=== PATIENT | male | born 1975 | race Caucasian/White ===

== ENCOUNTER 2018-08-08 11:16 | Observation (INO) ==
[2018-08-08 12:53] LABS: Albumin Level 3.5 gm/dL (3.4-5.0); Albumin/Globulin Ratio 0.9 (1.1-1.8); Anion Gap 16.6 mEq/L (5-15); Bilirubin,Total 0.8 mg/dL (0.2-1.0); Globulin 4.1 gm/dl (1.3-3.2); Potassium 3.6 mmoL/L (3.5-5.1); Total Protein,Serum 7.6 gm/dL (6.4-8.2)
--- NOTE | 2018-08-08 13:02 | Emergency Department Note ---
ED Disposition Clinical Impression: Cellulitis Disposition: Still a Patient Condition on Discharge: Fair Instructions: DI for Skin Abscess Referrals: Provider,Referral, [Primary Care Provider] - - Critical Care Critical Care Time: No Attestation: On 08/08/18, the high probability of a clinically significant, sudden or life threatening deterioration of the following system(s) required my full and direct attention, intervention and personal management. The time I documented below is in addition to time spent performing reported procedures but includes the following listed in this critical care notation. Medical Decision Making - [place] Inquiry Pt receiving controlled substance: No [place] was queried for this patient: No Vital Signs: 08/08/18 12:16 Temperature 98.0 F Temperature Source Oral Pulse Rate [Left] 101 H Respiratory Rate 17 Blood Pressure [Right Arm] 156/75 H Blood Pressure Mean [Right Arm] 102 Blood Pressure Source [Right Arm] Automatic Cuff Blood Pressure Position [Right Arm] Sitting 02 Sat by Pulse Oximetry 98 Oxygen Delivery Method Room Air - Lab Data Lab Results 08/08/18 11:48: WBC 12.1 H, RBC 4.72, Hgb 15.0, Hct 44.3, MCV 93.9, MCH 31.7 H, MCHC 33.8, RDW 13.7, Plt Count 192, MPV 9.0, Neut % (Auto) 75.4, Lymph % (Auto) 15.8, [place] % (Auto) 5.6, Eos % (Auto) 2.8, Baso % (Auto) 0.3, Neut # (Auto) 9.1 H, Lymph # (Auto) 1.9, [place] # (Auto) 0.7, Eos # (Auto) 0.3, Baso # (Auto) 0.0 08/08/18 11:48: Sodium 137, Potassium 3.6, Chloride 100, Carbon Dioxide 24, Anion Gap 16.6 H, BUN 19 H, Creatinine 1.53 H, Estimated Creat Clear 51, Estimated GFR 50 L, Est GFR ( Amer) 61, Glucose 103, Calcium 9.0, Total Bilirubin 0.8, AST 31, ALT 59, Alkaline Phosphatase 71, Total Protein 7.6, Albumin 3.5, Globulin 4.1 H, Albumin/Globulin Ratio 0.9 L 08/08/18 11:48: Lactate 0.4 Result diagrams: 08/08/18 11:48 08/08/18 11:48 Orders (Tests/Meds): ED MEDICATIONS Generic Name Dose Route Start Last Admin Trade Name Freq PRN Reason Stop Dose Admin Clindamycin Phosphate 900 mg/ 106 mls @ 100 mls/hr 08/08/18 12:29 Sodium Chloride IV 08/08/18 13:32 ONCE ONE Protocol Discontinued Medications Generic Name Dose Route Start Last Admin Trade Name Freq PRN Reason Stop Dose Admin Ketorolac Tromethamine 15 mg 08/08/18 12:59 Toradol 30mg/Ml Vial IV 08/08/18 13:00 ONCE ONE ORDERS Category Date Time Status CT elbow RT w con Stat Cat Scan 08/08/18 12:28 Ordered Drug Screen,Urine Stat Lab 08/08/18 13:13 Ordered Blood Culture Stat Micro 08/08/18 11:48 Received Medical Decision Narrative: 42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 Kaminski who will be admitted for IV antibiotics. Upper Extremity HPI - General Chief Complaint: Skin/Abscess/Foreign Body Stated Complaint: Swollen right arm, possible septic Time Seen by Provider: 08/08/18 13:00 Mode of Arrival: Ambulatory Limitations: No Limitations Description of Symptoms (Recalled from ER Triage Doc. by RN): PT PRESENTS WITH POSSIBLE SEPTIC RIGHT ELBOW. RECEIVED ROCEPHIN AND BACTRIM YESTERDAY BUT SWELLING HAS INCREASED SIGNIFICANTLY. - History of Present Illness HPI narrative: 42 years old white male with no prior past medical history who developed redness and swelling of the right elbow 3 days ago was seen in urgent treatment care was given antibiotics and started yesterday. He only took 2 doses but the pain and the swelling is progressively getting worse and extending to his right hand. The patient developed low-grade temperature and chills. She denies having chest pain palpitations nausea vomiting. He denies IV drug use. complaint: injury to: right Onset (ago): day(s) (3 days.) Other Extremity Injury: Right: elbow Handedness: left Place: work Severity scale (1-10): 8 Relieving factors: rest Exacerbating factors: movement of extremity - Related Data Allergies Allergy/AdvReac Type Severity Reaction Status Date / Time No Known Allergies Allergy Unverified 07/29/17 14:17 [facility] History - Hepatitis A Screen Drug use history?: No High risk sexual behaviors?: No History of sexually transmitted infection?: No Currently employed?: No Childcare worker?: No Do you have indoor plumbing?: Yes Do you have electricity?: Yes Attestation statement:: This patient has been screened for Hepatitis A risk factors. I have reviewed the patient's past medical history: Yes - Social History Educational Level: Completed High School Smoking Status: Unknown if ever smoked Alcohol Intake: never - Psychiatric History Expresses thoughts of harming self/others: None Suicide Plan Description: No Plan ROS Obtained: Yes All systems reviewed & no additional complaints Physical Exam - General General appearance: alert, in no apparent distress - Head Head exam: atraumatic, normocephalic, normal inspection - Eye Eye exam: Present: normal appearance, PERRL, EOMI - ENT ENT exam: Present: normal exam, normal oropharynx, mucous membranes moist, TM's normal bilaterally, normal external ear exam - Neck Neck exam: Present: normal inspection, full ROM, trachea midline. Absent: meni ngismus, lymphadenopathy - Chest Chest inspection: Present: normal inspection, symmetric chest wall rise. Absent: tenderness - Respiratory Respiratory exam: Present: normal lung sounds bilaterally. Absent: respiratory distress - Cardiovascular Cardiovascular exam: Present: regular rate, normal rhythm, normal heart sounds. Absent: JVD - Abdominal Exam Abdominal exam: Present: soft, normal bowel sounds. Absent: distention, tenderness, guarding, rebound, rigidity - Extremities Exam Extremities exam: Present: normal inspection, full ROM, tenderness, normal capillary refill, joint swelling, other (Positive for redness swelling and inflammation of the right upper extremity extending from the right elbow to the dorsum of the right hand.). Absent: calf tenderness - Back Exam Back exam: Present: normal inspection. Absent: tenderness - Neurological Exam Neurological exam: Present: alert, oriented X3, CN II-XII intact, motor sensory deficit, reflexes normal - Psychiatric Psychiatric exam: Present: normal affect, normal mood - Skin Skin exam: Present: warm, dry, intact, normal color - Lymphatic Lymphatic Findings: no adenopathy
[2018-08-08 13:04] LABS: Basophils % 0.3 % (0.1-2.0); Eosinophils # 0.3 K/mm3 (0.0-0.4); Eosinophils % 2.8 % (0.1-12.0); Hematocrit 44.3 % (42.0-52.0); Lymphocytes # 1.9 K/mm3 (0.7-4.5); Lymphocytes % 15.8 % (10-50); Mean Corpuscular HGB Conc 33.8 g/dL (31.8-35.4); Mean Corpuscular Hemoglobin 31.7 pg (27.0-31.2); Mean Corpuscular Volume 93.9 fl (80-94); Monocytes # 0.7 K/mm3 (0.1-1.0); Monocytes % 5.6 % (1.7-9.3); Neutrophils # 9.1 K/mm3 (1.8-7.8); Neutrophils % 75.4 % (37.0-80.0); Platelet Count 192 K/mm3 (142-424); Red Blood Count 4.72 M/mm3 (4.60-6.20); Red Cell Distribution Width 13.7 % (11.5-17.5); White Blood Count 12.1 K/mm3 (4.8-10.8)
--- NOTE | 2018-08-08 14:23 | Pharmacy Consult Notes ---
- Pharmacy Consult Date: 08/08/18 Time: 14:22 Referring provider: DR. PRYOR Reason for Consult:: VANCOMYCIN DOSING Allergies and ADEs:: Allergies Allergy/AdvReac Type Severity Reaction Status Date / Time No Known Allergies Allergy Unverified 07/29/17 14:17 Home Medications:: Home Medications Medication Instructions Recorded Confirmed Type No Known Home Medications 08/08/18 08/08/18 History Height: 1.6 m Weight: 124.738 kg Laboratory Results:: Laboratory Results - last 24 hr 08/08/18 11:48: WBC 12.1 H, RBC 4.72, Hgb 15.0, Hct 44.3, MCV 93.9, MCH 31.7 H, MCHC 33.8, RDW 13.7, Plt Count 192, MPV 9.0, Neut % (Auto) 75.4, Lymph % (Auto) 15.8, [place] % (Auto) 5.6, Eos % (Auto) 2.8, Baso % (Auto) 0.3, Neut # (Auto) 9.1 H, Lymph # (Auto) 1.9, [place] # (Auto) 0.7, Eos # (Auto) 0.3, Baso # (Auto) 0.0 08/08/18 11:48: Sodium 137, Potassium 3.6, Chloride 100, Carbon Dioxide 24, Anion Gap 16.6 H, BUN 19 H, Creatinine 1.53 H, Estimated Creat Clear 51, Estimat ed GFR 50 L, Est GFR ( Amer) 61, Glucose 103, Calcium 9.0, Total Bilirubin 0.8, AST 31, ALT 59, Alkaline Phosphatase 71, Total Protein 7.6, Albumin 3.5, Globulin 4.1 H, Albumin/Globulin Ratio 0.9 L 08/08/18 11:48: Lactate 0.4 Assessment and Plan - Assessment and plan all Dx Assessment and Plan for all problems:: BASED ON PATIENT FACTORS, RECOMMEND INITIATING VANCOMYCIN IV AT 2,250MG EVERY 18 HOURS. PHARMACY WILL MONITOR AND ADJUST DOSE APPROPRIATE. -NYDIA ANDREW, HAMLETD
--- NOTE | 2018-08-08 15:36 | History & Physical Report ---
*Admission Date: 08/08/18 *Chief complaint: cellulitis *History of present illness: Mr. Palomares is a 42-year-old male with no prior past medical history who developed redness and swelling of the right elbow 3 days ago. He went to the urgent treatment care yesterday and was started on Bactrim. Leading edge was marked with lines at that time and he was instructed to return to the clinic or ER if redness got worse. He only took 2 doses but the pain and the swelling is progressively getting worse and extending to his right hand. The patient developed low-grade temperature and chills. He denies having chest pain, palpitations, nausea, or vomiting. He has no primary care physician. Of note he thinks that he has possible history of gout as his father had gout. He reports several months ago having a red swollen knee that resolved spontaneously after about 2 weeks. [facility] History I have reviewed the patient's past medical history: Yes - *Social History Educational Level: Completed High School Smoking Status: Unknown if ever smoked Alcohol Intake: never - Psychiatric History Expresses thoughts of harming self/others: None Suicide Plan Description: No Plan Comment: Gout in his father Review of Systems - Review of Systems Review of systems:: pertinent systems reviewed and negative unless documented below Meds Home Medications Medication Instructions Recorded Confirmed Type No Known Home Medications 08/08/18 08/08/18 History Allergies Allergy/AdvReac Type Severity Reaction Status Date / Time No Known Allergies Allergy Unverified 07/29/17 14:17 Exam Vital signs and Labs for Last 24 Hours: Temp Pulse Resp BP Pulse Ox 97.8 F 99 H 18 127/88 99 08/08/18 15:17 08/08/18 15:17 08/08/18 15:17 08/08/18 15:17 08/08/18 15:17 Laboratory Results - last 24 hr 08/08/18 11:48: WBC 12.1 H, RBC 4.72, Hgb 15.0, Hct 44.3, MCV 93.9, MCH 31.7 H, MCHC 33.8, RDW 13.7, Plt Count 192, MPV 9.0, Neut % (Auto) 75.4, Lymph % (Auto) 15.8, [place] % (Auto) 5.6, Eos % (Auto) 2.8, Baso % (Auto) 0.3, Neut # (Auto) 9.1 H, Lymph # (Auto) 1.9, [place] # (Auto) 0.7, Eos # (Auto) 0.3, Baso # (Auto) 0.0 08/08/18 11:48: Sodium 137, Potassium 3.6, Chloride 100, Carbon Dioxide 24, Anion Gap 16.6 H, BUN 19 H, Creatinine 1.53 H, Estimated Creat Clear 51, Estimated GFR 50 L, Est GFR ( Amer) 61, Glucose 103, Calcium 9.0, Total Bilirubin 0.8, AST 31, ALT 59, Alkaline Phosphatase 71, Total Protein 7.6, Albumin 3.5, Globulin 4.1 H, Albumin/Globulin Ratio 0.9 L 08/08/18 11:48: Lactate 0.4 I & O for Last 24 hours: Intake & Output 08/05/18 08/06/18 08/07/18 08/08/18 23:59 23:59 23:59 23:59 Intake Total 1250 / 1250 Balance 1250 / 1250 Weight 127.091 kg - *Routine HEENT Exam Head: Present: normocephalic, atraumatic Eye: Present: EOMI, PERRL ENT: Present: mucous membranes moist - *Routine Neck Exam Present: supple. Absent: JVD, thyromegaly - *Routine Respiratory Exam Present: CTA bilaterally. Absent: prolonged expiratory phase, rales, wheezes, crackles - *Routine Cardiovascular Exam Present: RRR, Normal S1, Normal S2. Absent: murmur - *Routine Abdominal Exam Present: soft, normoactive bowel sounds. Absent: tenderness - *Routine Rectal Exam Patient deferred: visual exam - *Routine Exam Patient deferred: penile exam - *Routine Extremities Exam Present: edema, tenderness. Absent: cyanosis, clubbing Comments: Right upper remedy with erythema from proximal to elbow distal to dorsum of hand. Swelling of elbow joint and forearm, tender to palpation - *Routine Skin Exam Present: intact, erythema. Absent: cyanosis Comments: Erythema of right arm as prescribed previously - *Routine Neurological Exam Present: alert, oriented X3. Absent: altered mental status Assessment and Plan (1) Cellulitis Current visit: Yes Status: Acute Qualifiers: Site of cellulitis: extremity Site of cellulitis of extremity: upper extremity Laterality: right Qualified Code(s): L03.113 - Cellulitis of right upper limb Category: Medical Code(s): L03.90 - Cellulitis, unspecified Patient has progressing cellulitis of right upper extremity. No clear source or injury to skin. Elbow is tender to palpation. Initiated on Bactrim 24 hours prior to admission to ER. Transition to vancomycin. Continue IV with renal dosing. Blood cultures obtained. -Added uric acid to lab work as questionable history of gout which could conceiv ably explain joint tenderness and redness. Further management pending results - if has improvement in swelling and redness, will transition back to oral regimen to complete outpatient treatment (2) Renal insufficiency Current visit: Yes Status: Acute Category: Medical Code(s): N28.9 - Disorder of kidney and ureter, unspecified Unclear etiology. Patient reportedly has only single kidney. Caution with nephrotoxic medications, renally dose is appropriate. Monitor with labs in the morning
[2018-08-09 07:04] LABS: Basophils % 0.4 % (0.1-2.0); Eosinophils # 0.3 K/mm3 (0.0-0.4); Eosinophils % 3.8 % (0.1-12.0); Hematocrit 39.7 % (42.0-52.0); Hemoglobin 13.5 g/dL (14.1-18.0); Lymphocytes # 1.7 K/mm3 (0.7-4.5); Lymphocytes % 18.3 % (10-50); Mean Corpuscular Volume 94.3 fl (80-94); Mean Platelet Volume 8.3 fl (7.4-10.4); Monocytes # 0.6 K/mm3 (0.1-1.0); Monocytes % 6.3 % (1.7-9.3); Neutrophils # 6.4 K/mm3 (1.8-7.8); Neutrophils % 71.1 % (37.0-80.0); Platelet Count 190 K/mm3 (142-424); Red Blood Count 4.21 M/mm3 (4.60-6.20); Red Cell Distribution Width 13.6 % (11.5-17.5)
[2018-08-09 07:09] LABS: Anion Gap 13.9 mEq/L (5-15); Potassium 3.9 mmoL/L (3.5-5.1)
--- NOTE | 2018-08-09 11:45 | Pharmacy Consult Notes ---
- Pharmacy Consult Date: 08/09/18 Time: 11:44 Referring provider: DR. NIXON Reason for Consult:: VANCOMYCIN TROUGH LEVEL Allergies and ADEs:: Allergies Allergy/AdvReac Type Severity Reaction Status Date / Time No Known Allergies Allergy Unverified 07/29/17 14:17 Home Medications:: Home Medications Medication Instructions Recorded Confirmed Type No Known Home Medications 08/08/18 08/08/18 History Height: 1.85 m Weight: 127.091 kg Laboratory Results:: Laboratory Results - last 24 hr 08/08/18 11:48: WBC 12.1 H, RBC 4.72, Hgb 15.0, Hct 44.3, MCV 93.9, MCH 31.7 H, MCHC 33.8, RDW 13.7, Plt Count 192, MPV 9.0, Neut % (Auto) 75.4, Lymph % (Auto) 15.8, [place] % (Auto) 5.6, Eos % (Auto) 2.8, Baso % (Auto) 0.3, Neut # (Auto) 9.1 H, Lymph # (Auto) 1.9, [place] # (Auto) 0.7, Eos # (Auto) 0.3, Baso # (Auto) 0.0 08/08/18 11:48: Sodium 137, Potassium 3.6, Chloride 100, Carbon Dioxide 24, Anion Gap 16.6 H, BUN 19 H, Creatinine 1.53 H, Estimated Creat Clear 51, Estimated GFR 50 L, Est GFR ( Amer) 61, Glucose 103, Calcium 9.0, Total Bilirubin 0.8, AST 31, ALT 59, Alkaline Phosphatase 71, Total Protein 7.6, Albumin 3.5, Globulin 4.1 H, Albumin/Globulin Ratio 0.9 L 08/08/18 11:48: Lactate 0.4 08/08/18 11:48: Uric Acid 6.7 08/09/18 06:46: WBC 9.0 D, RBC 4.21 L, Hgb 13.5 L, Hct 39.7 L, MCV 94.3 H, MCH 32.0 H, MCHC 34.0, RDW 13.6, Plt Count 190, MPV 8.3, Neut % (Auto) 71.1, Lymph % (Auto) 18.3, [place] % (Auto) 6.3, Eos % (Auto) 3.8, Baso % (Auto) 0.4, Neut # (Auto) 6.4, Lymph # (Auto) 1.7, [place] # (Auto) 0.6, Eos # (Auto) 0.3, Baso # (Auto) 0.0 08/09/18 06:46: Sodium 138, Potassium 3.9, Chloride 105, Carbon Dioxide 23, Anion Gap 13.9, BUN 17, Creatinine 1.46 H, Estimated Creat Clear 118, Estimated GFR 53 L, Est GFR ( Amer) 64, Glucose 100, Calcium 8.0 L D 08/09/18 06:46: Vancomycin Trough 5.6 L Medical History: Denies:: Cancer, Diabetes Mellitus Type 1, Diabetes Mellitus Type 2, MRSA Assessment and Plan (1) Cellulitis Current visit: Yes Status: Acute Qualifiers: Site of cellulitis: extremity Site of cellulitis of extremity: upper extremity Laterality: right Qualified Code(s): L03.113 - Cellulitis of right upper limb Category: Medical Code(s): L03.90 - Cellulitis, unspecified (2) Renal insufficiency Current visit: Yes Status: Acute Category: Medical Code(s): N28.9 - Disorder of kidney and ureter, unspecified - Assessment and plan all Dx Assessment and Plan for all problems:: BASED ON VANCOMYCIN TROUGH LEVEL AND PATIENT FACTORS, RECOMMEND CONTINUING VANCOMYCIN 2250 MG IV Q18H AT THIS TIME. PHARMACY WILL CONTINUE TO MONITOR CLOSELY AND ADJUST APPROPRIATE.
--- NOTE | 2018-08-09 13:48 | Discharge Summary ---
General - General Admission date:: 08/08/18 Discharge date: 08/09/18 HPI HPI: Mr. Palomares is a 42-year-old male with no prior past medical history who developed redness and swelling of the right elbow 3 days ago. He went to the urgent treatment care yesterday and was started on Bactrim. Leading edge was marked with lines at that time and he was instructed to return to the clinic or ER if redness got worse. He only took 2 doses but the pain and the swelling is progressively getting worse and extending to his right hand. The patient developed low-grade temperature and chills. He denies having chest pain, palpitations, nausea, or vomiting. He has no primary care physician. Of note he thinks that he has possible history of gout as his father had gout. He reports several months ago having a red swollen knee that resolved spontaneously after about 2 weeks. Hospital Course Hospital Course: Admitted to [facility] for IV antibiotics. Treated with vancomycin with significant improvement in erythema, swelling, and movement of arm. Was able to regain majority of movement and elbow and hand with decrease in edema and redness. Still noted to have fluid collection in right elbow which was tapped w ith the assistance of ultrasound. Drained 3 cc of fluid from patient's olecranon bursa. Fluid sent for study. Otherwise patient remained afebrile, tolerated regular diet. Plan to resume patient's Bactrim at time of discharge, already has prescription at home to complete. Additionally, patient admits to significant alcohol use and would like to quit. As he has no underlying liver disease, will initiate naltrexone. Plan to have patient follow-up in our clinic later this week to assess response to oral antibiotics. Counseled to return to the ER or clinic if notices worsening redness and swelling after transitioning back to oral antibiotics. For discharge home. Objective Vital signs: Temp Pulse Resp BP Pulse Ox 98.6 F 94 H 18 138/66 98 08/09/18 08:00 08/09/18 08:00 08/09/18 08:00 08/09/18 08:00 08/09/18 08:00 Narrative: - *Routine HEENT Exam Head: Present: normocephalic, atraumatic Eye: Present: EOMI, PERRL ENT: Present: mucous membranes moist - *Routine Neck Exam Present: supple. Absent: JVD, thyromegaly - *Routine Respiratory Exam Present: CTA bilaterally. Absent: prolonged expiratory phase, rales, wheezes, crackles - *Routine Cardiovascular Exam Present: RRR, Normal S1, Normal S2. Absent: murmur - *Routine Abdominal Exam Present: soft, normoactive bowel sounds. Absent: tenderness - *Routine Rectal Exam Patient deferred: visual exam - *Routine Exam Patient deferred: penile exam - *Routine Extremities Exam Present: Interval improvement in edema, range of motion, tenderness. Tenderness now focal to olecranon bursa. Absent: cyanosis, clubbing Comments: Leading edge of erythema has receded from previously drawn lines. - *Routine Skin Exam Present: intact, erythema. Absent: cyanosis Comments: Erythema of right arm as prescribed previously - *Routine Neurological Exam Present: alert, oriented X3. Absent: altered mental status Results Labs on day of discharge: Labs from last 24 hours 08/09/18 08/09/18 08/09/18 06:46 06:46 06:46 WBC 9.0 D RBC 4.21 L Hgb 13.5 L Hct 39.7 L MCV 94.3 H MCH 32.0 H MCHC 34.0 RDW 13.6 Plt Count 190 MPV 8.3 Neut % (Auto) 71.1 Lymph % (Auto) 18.3 [place] % (Auto) 6.3 Eos % (Auto) 3.8 Baso % (Auto) 0.4 Neut # (Auto) 6.4 Lymph # (Auto) 1.7 [place] # (Auto) 0.6 Eos # (Auto) 0.3 Baso # (Auto) 0.0 Sodium 138 Potassium 3.9 Chloride 105 Carbon Dioxide 23 Anion Gap 13.9 BUN 17 Creatinine 1.46 H Estimated Creat Clear 118 Estimated GFR 53 L Est GFR ( Amer) 64 Glucose 100 Uric Acid Calcium 8.0 L D Vancomycin Trough 5.6 L 08/08/18 11:48 WBC RBC Hgb Hct MCV MCH MCHC RDW Plt Count MPV Neut % (Auto) Lymph % (Auto) [place] % (Auto) Eos % (Auto) Baso % (Auto) Neut # (Auto) Lymph # (Auto) [place] # (Auto) Eos # (Auto) Baso # (Auto) Sodium Potassium Chloride Carbon Dioxide Anion Gap BUN Creatinine Estimated Creat Clear Estimated GFR Est GFR ( Amer) Glucose Uric Acid 6.7 Calcium Vancomycin Trough DS: Diagnosis - Discharge Diagnosis (1) Cellulitis Status: Acute (2) Renal insufficiency Status: Acute (3) Alcohol dependence Status: Chronic Discharge Plan - Patient Discharge Instructions ACTIVITY: Continue current activity DIET: continue same diet Patient Instructions: DI for Cellulitis -- Adult, Kidney Failure - Follow up Plan Follow up with: Trevor Cortes MD [Staff Physician] - (Friday, last appt of day) Disposition: Home, Self-Jail Medications: Home Medications Medication Instructions Recorded Confirmed Type Naltrexone HCl 50 mg PO DAILY 30 Days #30 tablet 08/09/18 Rx Prescriptions/Medication Reconciliation: No Action No Known Home Medications
--- NOTE | 2018-08-09 14:17 | Pharmacy Consult Notes ---
[facility] Pharmacy VTE Monitoring - Patient Demographics Admission date: 08/08/18 Report Date: 08/09/18 Time: 14:17 Allergies/Adverse Reactions: Patient Allergies No Known Allergies Allergy (Unverified 07/29/17 14:17) Height: 1.85 m Weight: 127.091 kg Patient Problems: Current Active Problems Cellulitis (Acute) Renal insufficiency (Acute) Alcohol dependence (Chronic) - VTE Risk Labs: VTE Related Lab Results Hgb 13.5 g/dL (14.1-18.0) L 08/09/18 06:46 Hct 39.7 % (42.0-52.0) L 08/09/18 06:46 Plt Count 190 K/mm3 (142-424) 08/09/18 06:46 BUN 17 mg/dL (7-18) 08/09/18 06:46 Creatinine 1.46 mg/dL (0.70-1.30) H 08/09/18 06:46 Estimated Creat Clear 118 mL/min (50-200) 08/09/18 06:46 VTE Score: 1 VTE Risk Level: Very Low Risk - Prophylaxis VTE Prophylaxis Ordered?: Yes Types of VTE Prophylaxis: TEDS Knee High Location of Applied Device: Bilateral Lower Extremeties
== END 2018-08-09 14:30 | disposition home or self-care (01) ==
LOC: 2ND 11:16 → ER 11:16 → 2ND 14:59
PROVIDERS: ADMIT Internal Medicine Adolescent Medicine; ATTEND Internal Medicine Adolescent Medicine
DX: N28.9 Disorder of kidney and ureter, unspecified; F10.20 Alcohol dependence, uncomplicated; L03.113 Cellulitis of right upper limb
CPT/HCPCS: 36415; 73080; 80048; 80053; 80202; 83605; 84550; 85025; 87040; 87070; 87205; 89051; 96365; 96367; 96375; 99283; G0378; J3370

== ENCOUNTER 2019-05-25 12:28 | Inpatient (IN) ==
--- NOTE | 2019-05-25 13:18 | Consult Report ---
*Admission Date: 05/25/19 *Reason for consult:: Perianal abscess *History of present illness: This is a 43-year-old gentleman seen in consultation from Dr. Cortes for evaluation regarding perianal abscess. He presented to the outpatient clinic with increasing perianal pain. No drainage. No definitive fevers. Over the past few weeks she has had what he describes as "hemorrhoidal-type pain". Over the past few days the pain is increased he has noticed fairly severe swelling and is currently "in so much pain that (he) cannot sit". Review of Systems - Constitutional Denies chills - Eyes Denies change in vision - ENT Denies change in voice - *Cardiovascular Denies chest pain - *Respiratory Denies cough - *Gastrointestinal Denies abdominal pain - *Genitourinary Denies difficulty urinating - *Musculoskeletal Denies back pain - Integumentary/Breasts Reports boil - *Neurologic Denies abnormal movements - Psychiatric Denies anxiety - Hematologic/Lymphatic Denies easy bleeding [facility] History Medical History: Denies:: Cancer, Diabetes Mellitus Type 1, Diabetes Mellitus Type 2, MRSA *Have you ever received a pneumonia vaccine?: No *Have you received a flu vaccine this season?: No Other Surgeries: Yes: Other (lasic and asectomy) Amputation: No - *Social History Smoking Status: Unknown if ever smoked Alcohol Intake: never Alcohol Intake Frequency:: 3 or more drinks per day Substance Use Type: marijuana *Occupational Status:: employed Household Members: spouse *Travel in the last 8 weeks: None Family Hx:: Non-contributory Meds Allergies Allergy/AdvReac Type Severity Reaction Status Date / Time No Known Allergies Allergy Unverified 07/29/17 14:17 Exam Vital signs and Labs for Last 24 Hours: Temp Pulse Resp BP Pulse Ox 100.2 F H 106 H 19 159/91 H 97 05/25/19 13:05 05/25/19 13:05 05/25/19 13:05 05/25/19 13:05 05/25/19 13:05 I & O for Last 24 hours: Intake & Output 05/23/19 05/24/19 05/25/19 05/26/19 11:59 11:59 11:59 11:59 Weight 264 lb 4 oz - Constitutional mild distress Comments: secondary to pain - *Routine Respiratory Exam Absent: respiratory distress - *Routine Cardiovascular Exam Present: tachycardia - *Routine Rectal Exam Comments: Severe perianal tenderness and posterior induration/swelling. No spreading cellulitis. Assessment and Plan (1) Perianal abscess Current visit: Yes Status: Acute Category: Medical Code(s): K61.0 - Anal abscess Incision and drainage of perianal abscess I have discussed the risks and benefits including, but not limited to: Bleeding Infection Damage to surrounding tissue Inherent risks of sedation The patient agrees to proceed.
[2019-05-25 13:29] LABS: Basophils % 0.3 % (0.1-2.0); Eosinophils # 0.1 K/mm3 (0.0-0.4); Eosinophils % 0.4 % (0.1-12.0); Hematocrit 51.3 % (42.0-52.0); Hemoglobin 16.3 g/dL (14.1-18.0); Lymphocytes % 8.5 % (10-50); Mean Corpuscular HGB Conc 31.8 g/dL (31.8-35.4); Mean Corpuscular Volume 99.7 fl (80-94); Mean Platelet Volume 8.3 fl (7.4-10.4); Monocytes % 9.1 % (1.7-9.3); Neutrophils # 9.4 K/mm3 (1.8-7.8); Neutrophils % 81.7 % (37.0-80.0); Platelet Count 226 K/mm3 (142-424); Red Blood Count 5.14 M/mm3 (4.60-6.20); Red Cell Distribution Width 14.8 % (11.5-17.5); White Blood Count 11.5 K/mm3 (4.8-10.8)
--- NOTE | 2019-05-25 13:48 | Progress Note ---
[facility] Anesthesia Checklist - Patient Identification Patient Identification: Arm Band, Verbal (Name & ) - Structural Data Admitted From: Home Planned Operative Procedure/s: I&D Consent for Planned Operative Procedure(s) Verified: Yes Verified Documents: Surgical Consent, History and Physical - NPO Status Verified Time NPO: 09:00 - Chart Verification Results Verified: CBC - Additional verifications Anesthesia Reactions: No - Airway Assessment C-Spine Mobility Assessed: Yes TMJ Mobility Assessed: Yes Dentition: Good Dentition (missing teeth) - Neurological Assessment Level of Consciousness: Awake, Alert, Appropriate, Follows Commands Hx Seizures: No Numbness or tingling in extremities: No - Anesthesia Plan Anesthesia Risk discussed: Yes Anesthesia Plan: Verified ASA Class: II Anesthesia Type: General [facility] History I have reviewed the patient's past medical history: Yes Medical History: Denies:: Cancer, Diabetes Mellitus Type 1, Diabetes Mellitus Type 2, MRSA *Have you ever received a pneumonia vaccine?: No *Have you received a flu vaccine this season?: No Anesthesia experience/problems:: No complications Other Surgeries: Yes: Hernia Repair, Other (lasic and vasectomy) Amputation: No - *Social History Smoking Status: Never smoker Alcohol Intake: current Alcohol Intake Frequency:: 3 or more drinks per day Substance Use Type: marijuana *Occupational Status:: employed Housing: house Household Members: spouse *Travel in the last 8 weeks: None Family Hx:: Non-contributory
[2019-05-25 13:52] LABS: Albumin Level 3.6 gm/dL (3.4-5.0); Albumin/Globulin Ratio 0.9 (1.1-1.8); Anion Gap 10.9 mEq/L (5-15); Bilirubin,Total 0.9 mg/dL (0.2-1.0); Total Protein,Serum 7.6 gm/dL (6.4-8.2)
--- NOTE | 2019-05-25 14:40 | History & Physical Report ---
*Admission Date: 05/25/19 *Chief complaint: pain in buttock *History of present illness: 43-year-old gentleman with a history of hypertension who presented to clinic with worsening pain in his bottom progressing over the past 6 days. He states he has been unable to sit down for the past 3 days due to the intensity of the pain and road to clinic in his car laying on his back in the backseat. Denies rosita fever but has had subjective chills. Denies any nausea or vomiting. Has had to strain to have a bowel movement. Pain is intense to the point that he is crying in clinic on exam. Exam initially concerning for perianal abscess. Surgery was consulted and patient was directly admitted from clinic for surgical drainage of suspected abscess. Patient found to be tachycardic in clinic. [facility] History I have reviewed the patient's past medical history: Yes Medical History: Denies:: Cancer, Diabetes Mellitus Type 1, Diabetes Mellitus Type 2, MRSA, Seizures *Have you ever received a pneumonia vaccine?: No *Have you received a flu vaccine this season?: No Anesthesia experience/problems:: No complications Other Surgeries: Yes: Hernia Repair, Other (lasic and vasectomy) Amputation: No - *Social History Smoking Status: Never smoker Alcohol Intake: current Alcohol Intake Frequency:: 3 or more drinks per day (No history of withdrawals) Substance Use Type: marijuana *Occupational Status:: employed Housing: house Household Members: spouse *Travel in the last 8 weeks: None Family Hx:: Non-contributory Review of Systems - Review of Systems Review of systems:: pertinent systems reviewed and negative unless documented below - *Neurologic Denies abnormal movements Meds Home Medications Medication Instructions Recorded Confirmed Type No Known Home Medications 05/25/19 05/25/19 History Allergies Allergy/AdvReac Type Severity Reaction Status Date / Time No Known Allergies Allergy Verified 05/25/19 13:33 Exam Vital signs and Labs for Last 24 Hours: Temp Pulse Resp BP Pulse Ox 100.2 F H 106 H 20 159/91 H 97 05/25/19 13:05 05/25/19 13:05 05/25/19 13:27 05/25/19 13:05 05/25/19 13:05 Laboratory Results - last 24 hr 05/25/19 13:15: WBC 11.5 H, RBC 5.14, Hgb 16.3, Hct 51.3, MCV 99.7 H, MCH 31.7 H , MCHC 31.8, RDW 14.8, Plt Count 226, MPV 8.3, Neut % (Auto) 81.7 H, Lymph % (Auto) 8.5 L, [place] % (Auto) 9.1, Eos % (Auto) 0.4, Baso % (Auto) 0.3, Neut # (Auto) 9.4 H, Lymph # (Auto) 1.0, [place] # (Auto) 1.0, Eos # (Auto) 0.1, Baso # (Auto) 0.0 05/25/19 13:15: Sodium 138, Potassium 3.9, Chloride 100, Carbon Dioxide 31, Anion Gap 10.9, BUN 13, Creatinine 1.45 H, Estimated Creat Clear 111, Estimated GFR 53 L, Est GFR ( Amer) 64, Glucose 105, Calcium 9.0, Total Bilirubin 0.9, AST 9 L, ALT 28, Alkaline Phosphatase 78, Total Protein 7.6, Albumin 3.6, Globulin 4.0 H, Albumin/Globulin Ratio 0.9 L I & O for Last 24 hours: Intake & Output 05/22/19 05/23/19 05/24/19 05/25/19 23:59 23:59 23:59 23:59 Weight 119.862 kg - Constitutional mild distress Comments: In visible pain - *Routine HEENT Exam Head: Present: normocephalic Eye: Present: EOMI, PERRL ENT: Present: mucous membranes moist - *Routine Neck Exam Present: supple. Absent: lymphadenopathy - *Routine Respiratory Exam Present: CTA bilaterally - *Routine Cardiovascular Exam Present: RRR - *Routine Abdominal Exam Present: soft, normoactive bowel sounds. Absent: tenderness - *Routine Rectal Exam Patient deferred: visual exam, digital exam Comments: Bulging subcutaneous collection midline at base of gluteal cleft and coccyx. Exquisitely tender to palpation. Minimal overlying erythema. Pain all the way to patient's anus. No appreciable tracts or pores is seen in pilonidal cysts. Rectal tone normal but exquisitely tender - *Routine Extremities Exam Absent: cyanosis, clubbing, edema - *Routine Skin Exam Present: warm. Absent: rash - *Routine Neurological Exam Present: alert, oriented X3 Assessment and Plan (1) Sepsis Current visit: Yes Status: Acute Qualifiers: Sepsis type: sepsis due to unspecified organism Sepsis acute organ dysfunction status: without acute organ dysfunction Qualified Code(s): A41.9 - Sepsis, unspecified organism Category: Medical Code(s): A41.9 - Sepsis, unspecified organism Patient was tachycardic greater than 90, tachypnea greater than 20, source with extensive perianal abscess. Initiated on broad-spectrum antibiotics with Zosyn. Continue IV fluid resuscitation. Surgical intervention has been performed. Blood cultures obtained along with wound cultures. Further management pending results. At this time patient is critically ill and may need further surgical or medical intervention given the extent of his infection. (2) Perianal abscess Current visit: Yes Status: Acute Category: Medical Code(s): K61.0 - Anal abscess Unclear etiology however extensive abscess perianally. Surgery consulted, appreciate recommendations. Status post I&D of lesion with extensive debridement of abscess. Continue IV Zosyn for empiric coverage. Wound cultures obtained, if speciate specific pathogens, will narrow coverage based on sensitivities. Oxycodone and morphine for pain control. Will initiate bowel regimen. Will need at least 48 hours of IV antibiotics to monitor for clinical response. If symptoms worsen or concern for incomplete drainage of abscess, may necessitate repeat I&D versus transfer to tertiary care center with colorectal surgery for more extensive intervention IV morphine 20 to 30 minutes prior to dressing changes. (3) Hypertension Current visit: Yes Status: Chronic Qualifiers: Hypertension type: essential hypertension Qualified Code(s): I10 - Essential (primary) hypertension Category: Medical Code(s): I10 - Essential (primary) hypertension Resume home medications when appropriate. Will monitor for now as pain is rupinder rit for current elevation. (4) Alcohol dependence Current visit: No Status: Chronic Qualifiers: Substance use status: uncomplicated Qualified Code(s): F10.20 - Alcohol dependence, uncomplicated Category: Medical Code(s): F10.20 - Alcohol dependence, uncomplicated Excessive alcohol intake daily however no history of withdrawals. Patient has quit before without difficulty. Will monitor for any signs of withdrawal and initiate CIWA scoring if needed. (5) Chronic kidney disease, stage III (moderate) Current visit: Yes Status: Chronic Category: Medical Code(s): N18.3 - Chronic kidney disease, stage 3 (moderate) Monitor for change with daily labs. Caution with nephrotoxins and anti-infl ammatories.
--- NOTE | 2019-05-25 14:52 | Operative Note ---
Date of procedure: 05/25/19 Pre-op Diagnosis:: Posterior perianal abscess Post-op Diagnosis:: Complex posterior perianal/perirectal abscess Procedure performed:: Incision and drainage of complex posterior perianal/perirectal abscess Surgeon:: Hayder Lea MD MOLDING PLASTERER:: Josue Subramanian Anesthesia: LMA Estimated blood loss (mL): 15 Operative findings:: Complex posterior perianal abscess with some projection bilaterally and projection towards the posterior perirectal space. Although this was not a classic "horseshoe abscess" it did possess some similar findings. Operative note:: The patient was taken to the operating room and placed in the supine position. General anesthesia with laryngeal mask airway was achieved and was transferred to a right lateral decubitus position. Digital rectal exam and inspection/palpation in the perianal region revealed firm induration along the posterior anal verge with some projection somewhat towards the left and slightly to the right. An incision was made just to the left overlying the central portion of the induration. The deeper subcutaneous tissue was dissected and purulent fluid was encountered. This was obtained for Gram stain/culture. Inspection and digital exam revealed projection somewhat towards the left but also towards the right in the perianal space. Projection towards the posterior perirectal space was also noted. A counterincision along the right lateral margin of the cavity was made to facilitate dressing changes. The central/anal verge incision was reapproximated with running Vicryl in a locking manner. The wound was packed with moistened Kerlix and infiltrated with 1% lidocaine. Dressings were applied and the patient was transferred to recovery after removal of his laryngeal mask airway. Condition: stable Disposition: PACU Specimens:: Fluid for Gram stain/culture Complications:: No immediate
--- NOTE | 2019-05-25 15:03 | Progress Note ---
[facility] Anesthesia Record Part II Discharge Time: 15:15 Destination: Medical Surgical Department PACU nurse assessment reviewed?: Yes Patient Condition:: Good Anesthesia Complications:: None Swallowing reflex intact?: Yes Cyanosis?: No
--- NOTE | 2019-05-25 15:03 | Progress Note ---
[facility] Anesthesia Record Part I Intake, IV Amount: 600 Estimated blood loss (mL): 75 Urine output (mL): 0 (NM) Blood Products used (#): none Blood Pressure: 160/89 SaO2: 96 Pulse Rate: 118 Respiratory Rate: 21 Temperature: 97.5 F Patient is:: Drowsy, Stable Stable to PACU at:: 14:45
[2019-05-26 06:13] LABS: Anion Gap 8.8 mEq/L (5-15); Calcium 8.8 mg/dL (8.5-10.1)
[2019-05-26 06:22] LABS: Basophils % 0.2 % (0.1-2.0); Eosinophils # 0.1 K/mm3 (0.0-0.4); Eosinophils % 0.3 % (0.1-12.0); Hematocrit 46.7 % (42.0-52.0); Hemoglobin 14.9 g/dL (14.1-18.0); Lymphocytes # 1.5 K/mm3 (0.7-4.5); Lymphocytes % 10.9 % (10-50); Mean Corpuscular HGB Conc 31.9 g/dL (31.8-35.4); Mean Corpuscular Volume 99.6 fl (80-94); Mean Platelet Volume 8.3 fl (7.4-10.4); Monocytes % 7.1 % (1.7-9.3); Neutrophils # 11.5 K/mm3 (1.8-7.8); Neutrophils % 81.5 % (37.0-80.0); Platelet Count 215 K/mm3 (142-424); Red Blood Count 4.68 M/mm3 (4.60-6.20); Red Cell Distribution Width 14.6 % (11.5-17.5); White Blood Count 14.1 K/mm3 (4.8-10.8)
--- NOTE | 2019-05-26 07:38 | Pharmacy Consult Notes ---
[facility] Pharmacy VTE Monitoring - Patient Demographics Admission date: 05/26/19 Report Date: 05/26/19 Time: 07:38 Allergies/Adverse Reactions: Patient Allergies No Known Allergies Allergy (Verified 05/25/19 13:33) Height: 1.85 m Weight: 122.045 kg Patient Problems: Current Active Problems Perianal abscess (Acute) Hypertension (Chronic) Chronic kidney disease, stage III (moderate) (Chronic) Sepsis (Acute) - VTE Risk Labs: VTE Related Lab Results Hgb 14.9 g/dL (14.1-18.0) 05/26/19 05:45 Hct 46.7 % (42.0-52.0) 05/26/19 05:45 Plt Count 215 K/mm3 (142-424) 05/26/19 05:45 BUN 13 mg/dL (7-18) 05/26/19 05:45 Creatinine 1.40 mg/dL (0.70-1.30) H 05/26/19 05:45 Estimated Creat Clear 117 mL/min (50-200) 05/26/19 05:45 Was VTE Risk Assessment Performed: Yes VTE Score: 1 VTE Risk Level: Very Low Risk Clinical Trial Participant: No - Prophylaxis VTE Prophylaxis Ordered?: Yes Types of VTE Prophylaxis: TEDS Knee High Location of Applied Device: Left Leg
--- NOTE | 2019-05-26 08:18 | Progress Note ---
Subjective Patient reports: no new complaints Exam Vital signs and Labs for Last 24 Hours: Temp Pulse Resp BP Pulse Ox 98.2 F 76 17 138/95 H 92 L 05/26/19 04:00 05/26/19 04:00 05/26/19 04:00 05/26/19 04:00 05/26/19 04:00 Laboratory Results - last 24 hr 05/25/19 13:15: WBC 11.5 H, RBC 5.14, Hgb 16.3, Hct 51.3, MCV 99.7 H, MCH 31.7 H , MCHC 31.8, RDW 14.8, Plt Count 226, MPV 8.3, Neut % (Auto) 81.7 H, Lymph % (Auto) 8.5 L, [place] % (Auto) 9.1, Eos % (Auto) 0.4, Baso % (Auto) 0.3, Neut # (Auto) 9.4 H, Lymph # (Auto) 1.0, [place] # (Auto) 1.0, Eos # (Auto) 0.1, Baso # (Auto) 0.0 05/25/19 13:15: Sodium 138, Potassium 3.9, Chloride 100, Carbon Dioxide 31, Anion Gap 10.9, BUN 13, Creatinine 1.45 H, Estimated Creat Clear 111, Estimated GFR 53 L, Est GFR ( Amer) 64, Glucose 105, Calcium 9.0, Total Bilirubin 0.9, AST 9 L, ALT 28, Alkaline Phosphatase 78, Total Protein 7.6, Albumin 3.6, Globulin 4.0 H, Albumin/Globulin Ratio 0.9 L 05/26/19 05:45: WBC 14.1 H, RBC 4.68, Hgb 14.9, Hct 46.7, MCV 99.6 H, MCH 31.8 H , MCHC 31.9, RDW 14.6, Plt Count 215, MPV 8.3, Neut % (Auto) 81.5 H, Lymph % (Auto) 10.9, [place] % (Auto) 7.1, Eos % (Auto) 0.3, Baso % (Auto) 0.2, Neut # (Auto) 11.5 H, Lymph # (Auto) 1.5, [place] # (Auto) 1.0, Eos # (Auto) 0.1, Baso # (Auto) 0.0 05/26/19 05:45: Sodium 139, Potassium 3.8, Chloride 101, Carbon Dioxide 33 H, Anion Gap 8.8, BUN 13, Creatinine 1.40 H, Estimated Creat Clear 117, Estimated GFR 55 L, Est GFR ( Amer) 67, Glucose 126 H, Calcium 8.8 I & O for Last 24 hours: Intake & Output 05/23/19 05/24/19 05/25/19 05/26/19 11:59 11:59 11:59 11:59 Intake Total 2813 / 2813 Output Total 1175 / 1175 Balance 1638 / 1638 Weight 269 lb 1 oz Microbiology Reports for the Last 24 Hours: Microbiology 05/25/19 14:25 Rectum Gram Stain - Final - Constitutional no acute distress - *Routine Respiratory Exam Absent: respiratory distress - *Routine Cardiovascular Exam Present: RRR - *Routine Rectal Exam Comments: dressing in place. no spreading cellulitis. Progress Note: A&P (1) Sepsis Status: Acute Current Visit: Yes (2) Perianal abscess Status: Acute Current Visit: Yes (3) Hypertension Status: Chronic Current Visit: Yes (4) Alcohol dependence Status: Chronic Current Visit: No (5) Chronic kidney disease, stage III (moderate) Status: Chronic Current Visit: Yes (6) Perirectal abscess Status: Acute Assessment and plan: Posterior perianal abscess with extension to deeper posterior perirectal space with some lateral extension. Overall, doing well status post incision and drainage. Increase ambulation Dressing changes Continue antibiotics Current Visit: Yes
--- NOTE | 2019-05-26 13:23 | Progress Note ---
Internal Medicine - PN: Subj *Date: 05/26/19 *Time: 13:20 Interval history: Status post surgical debridement yesterday of perianal abscess. Has had fair pain control with current regimen of scheduled oral oxycodone and as needed morphine. Denies any fevers, shortness of breath, chest pain. Has eaten very little as he is not very hungry. Initiated on bowel regimen. Aside from throbbing pain in his perineal region, no significant complaint today. at bedside and updated on plan Exam Vital signs and Labs for Last 24 Hours: Temp Pulse Resp BP Pulse Ox 98.0 F 90 18 128/85 93 L 05/26/19 11:41 05/26/19 11:41 05/26/19 11:41 05/26/19 11:41 05/26/19 11:41 Laboratory Results - last 24 hr 05/25/19 13:15: WBC 11.5 H, RBC 5.14, Hgb 16.3, Hct 51.3, MCV 99.7 H, MCH 31.7 H , MCHC 31.8, RDW 14.8, Plt Count 226, MPV 8.3, Neut % (Auto) 81.7 H, Lymph % (Auto) 8.5 L, [place] % (Auto) 9.1, Eos % (Auto) 0.4, Baso % (Auto) 0.3, Neut # (Auto) 9.4 H, Lymph # (Auto) 1.0, [place] # (Auto) 1.0, Eos # (Auto) 0.1, Baso # (Auto) 0.0 05/25/19 13:15: Sodium 138, Potassium 3.9, Chloride 100, Carbon Dioxide 31, Anion Gap 10.9, BUN 13, Creatinine 1.45 H, Estimated Creat Clear 111, Estimated GFR 53 L, Est GFR ( Amer) 64, Glucose 105, Calcium 9.0, Total Bilirubin 0.9, AST 9 L, ALT 28, Alkaline Phosphatase 78, Total Protein 7.6, Albumin 3.6, Globulin 4.0 H, Albumin/Globulin Ratio 0.9 L 05/26/19 05:45: WBC 14.1 H, RBC 4.68, Hgb 14.9, Hct 46.7, MCV 99.6 H, MCH 31.8 H , MCHC 31.9, RDW 14.6, Plt Count 215, MPV 8.3, Neut % (Auto) 81.5 H, Lymph % (Auto) 10.9, [place] % (Auto) 7.1, Eos % (Auto) 0.3, Baso % (Auto) 0.2, Neut # (Auto) 11.5 H, Lymph # (Auto) 1.5, [place] # (Auto) 1.0, Eos # (Auto) 0.1, Baso # (Auto) 0.0 05/26/19 05:45: Sodium 139, Potassium 3.8, Chloride 101, Carbon Dioxide 33 H, Anion Gap 8.8, BUN 13, Creatinine 1.40 H, Estimated Creat Clear 117, Estimated GFR 55 L, Est GFR ( Amer) 67, Glucose 126 H, Calcium 8.8 I & O for Last 24 hours: Intake & Output 05/23/19 05/24/19 05/25/19 05/26/19 23:59 23:59 23:59 23:59 Intake Total 1263 / 1263 1910 / 1910 Output Total 400 / 775 775 / 775 Balance 863 / 488 1135 / 1135 Weight 119.862 kg 122.045 kg Microbiology Reports for the Last 24 Hours: Microbiology 05/25/19 14:25 Rectum Gram Stain - Final - Constitutional no acute distress - *Routine HEENT Exam Head: Present: normocephalic Eye: Present: EOMI, PERRL ENT: Present: mucous membranes moist - *Routine Respiratory Exam Present: CTA bilaterally - *Routine Cardiovascular Exam Present: RRR - *Routine Abdominal Exam Present: soft, normoactive bowel sounds. Absent: tenderness - *Routine Rectal Exam Comments: Bandaging in place - *Routine Extremities Exam Absent: cyanosis, clubbing, edema - *Routine Skin Exam Present: warm. Absent: rash - *Routine Neurological Exam Present: alert, oriented X3 Assessment and Plan (1) Sepsis Current visit: Yes Status: Acute Qualifiers: Sepsis type: sepsis due to unspecified organism Sepsis acute organ dysfunction status: without acute organ dysfunction Qualified Code(s): A41.9 - Sepsis, unspecified organism Category: Medical Code(s): A41.9 - Sepsis, unspecified organism (2) Perianal abscess Current visit: Yes Status: Acute Category: Medical Code(s): K61.0 - Anal abscess (3) Hypertension Current visit: Yes Status: Chronic Qualifiers: Hypertension type: essential hypertension Qualified Code(s): I10 - Essential (primary) hypertension Category: Medical Code(s): I10 - Essential (primary) hypertension (4) Alcohol dependence Current visit: No Status: Chronic Qualifiers: Substance use status: uncomplicated Qualified Code(s): F10.20 - Alcohol dep endence, uncomplicated Category: Medical Code(s): F10.20 - Alcohol dependence, uncomplicated (5) Chronic kidney disease, stage III (moderate) Current visit: Yes Status: Chronic Category: Medical Code(s): N18.3 - Chronic kidney disease, stage 3 (moderate) (6) Perirectal abscess Current visit: Yes Status: Acute Category: Medical Code(s): K61.1 - Rectal abscess - Assessment and plan all Dx Assessment and Plan for all problems:: Continue antibiotics dressing changes twice daily. Stool softener initiated. We will continue to observe for improvement in infection and normalization of white count. He has good response to IV antibiotics over the coming days, will transition to oral to complete course. Will need continued daily wound care and pain management when goes home. Anticipate patient continuing to need inpatient care for the foreseeable future. Cultures from wound pending. Surgery continues to follow along, appreciate recommendations.
[2019-05-27 06:24] LABS: Albumin Level 2.6 gm/dL (3.4-5.0); Albumin/Globulin Ratio 0.7 (1.1-1.8); Anion Gap 9.1 mEq/L (5-15); Bilirubin,Total 0.5 mg/dL (0.2-1.0); Calcium 8.4 mg/dL (8.5-10.1); Globulin 3.5 gm/dl (1.3-3.2); Total Protein,Serum 6.1 gm/dL (6.4-8.2)
[2019-05-27 07:00] LABS: Basophils # 0.1 K/mm3 (0-0.2); Basophils % 0.6 % (0.1-2.0); Eosinophils # 0.4 K/mm3 (0.0-0.4); Eosinophils % 3.8 % (0.1-12.0); Hematocrit 46.9 % (42.0-52.0); Hemoglobin 14.3 g/dL (14.1-18.0); Lymphocytes # 2.3 K/mm3 (0.7-4.5); Lymphocytes % 23.8 % (10-50); Mean Corpuscular HGB Conc 30.4 g/dL (31.8-35.4); Mean Corpuscular Volume 103.7 fl (80-94); Mean Platelet Volume 8.4 fl (7.4-10.4); Monocytes # 0.8 K/mm3 (0.1-1.0); Neutrophils # 6.1 K/mm3 (1.8-7.8); Neutrophils % 63.8 % (37.0-80.0); Platelet Count 229 K/mm3 (142-424); Red Blood Count 4.52 M/mm3 (4.60-6.20); Red Cell Distribution Width 14.6 % (11.5-17.5); White Blood Count 9.5 K/mm3 (4.8-10.8)
--- NOTE | 2019-05-27 07:13 | Progress Note ---
Subjective Narrative: resting. no complaints overnight per NSG. Exam Vital signs and Labs for Last 24 Hours: Temp Pulse Resp BP Pulse Ox 98.3 F 62 16 130/73 95 05/27/19 04:00 05/27/19 04:00 05/27/19 04:00 05/27/19 04:00 05/27/19 04:00 Laboratory Results - last 24 hr 05/27/19 05:55: Sodium 140, Potassium 4.1, Chloride 102, Carbon Dioxide 33 H, Anion Gap 9.1, BUN 18 D, Creatinine 1.49 H, Estimated Creat Clear 112, Estimated GFR 51 L, Est GFR ( Amer) 62, Glucose 99, Calcium 8.4 L, Total Bilirubin 0.5, AST 14 L D, ALT 28, Alkaline Phosphatase 58, Total Protein 6.1 L, Albumin 2.6 L, Globulin 3.5 H, Albumin/Globulin Ratio 0.7 L I & O for Last 24 hours: Intake & Output 05/24/19 05/25/19 05/26/19 05/27/19 11:59 11:59 11:59 11:59 Intake Total 3173 / 3173 840 / 840 Output Total 1175 / 1175 Balance 1997 840 / 840 Weight 269 lb 1 oz 274 lb 3 oz Microbiology Reports for the Last 24 Hours: Microbiology 05/25/19 14:25 Rectum Gram Stain - Final 05/25/19 14:25 Rectum Abscess Culture - Preliminary NO GROWTH AFTER 24 HOURS - Constitutional no acute distress - *Routine Respiratory Exam Absent: respiratory distress - *Routine Cardiovascular Exam Present: RRR Progress Note: A&P (1) Sepsis Status: Acute Current Visit: Yes (2) Perianal abscess Status: Acute Current Visit: Yes (3) Hypertension Status: Chronic Current Visit: Yes (4) Alcohol dependence Status: Chronic Current Visit: No (5) Chronic kidney disease, stage III (moderate) Status: Chronic Current Visit: Yes (6) Perirectal abscess Status: Acute Assessment and plan: Overall, doing well status post incision and drainage of posterior perianal and complex posterior anorectal space abscess. Continue antibiotics for now Continue dressing changes Current Visit: Yes
--- NOTE | 2019-05-27 08:54 | Progress Note ---
Internal Medicine - PN: Subj *Date: 05/27/19 *Time: 09:54 Interval history: Mr. Palomares is doing very well this morning on exam. States his pain is significantly improved since starting the Toradol and increasing the Dilaudid for dressing changes. Upon entering the room today he was up walking around. States he is getting bored and wanted to go for a walk. Is an otherwise generally good spirits. Remains afebrile and hemodynamically stable. Tolerating his liquid diet. Still has not had a bowel movement. Otherwise voiding independently. was at bedside for dressing change yesterday taking notes as she is planning on assisting with those changes at home. Denies shortness of breath, chest pain, nausea, vomiting. Exam Vital signs and Labs for Last 24 Hours: Temp Pulse Resp BP Pulse Ox 98.5 F 65 18 128/72 96 05/27/19 08:00 05/27/19 08:00 05/27/19 08:00 05/27/19 08:00 05/27/19 08:00 Laboratory Results - last 24 hr 05/27/19 05:55: WBC 9.5 D, RBC 4.52 L, Hgb 14.3, Hct 46.9, MCV 103.7 H, MCH 31.5 H, MCHC 30.4 L, RDW 14.6, Plt Count 229, MPV 8.4, Neut % (Auto) 63.8, Lymph % (Auto) 23.8, [place] % (Auto) 8.0, Eos % (Auto) 3.8, Baso % (Auto) 0.6, Neut # (Auto) 6.1, Lymph # (Auto) 2.3, [place] # (Auto) 0.8, Eos # (Auto) 0.4, Baso # (Auto) 0.1 05/27/19 05:55: Sodium 140, Potassium 4.1, Chloride 102, Carbon Dioxide 33 H, Anion Gap 9.1, BUN 18 D, Creatinine 1.49 H, Estimated Creat Clear 112, Estimated GFR 51 L, Est GFR ( Amer) 62, Glucose 99, Calcium 8.4 L, Total Bilirubin 0.5, AST 14 L D, ALT 28, Alkaline Phosphatase 58, Total Protein 6.1 L, Albumin 2.6 L, Globulin 3.5 H, Albumin/Globulin Ratio 0.7 L I & O for Last 24 hours: Intake & Output 05/24/19 05/25/19 05/26/19 05/27/19 23:59 23:59 23:59 23:59 Intake Total 1263 / 1263 2750 / 2750 0 / 0 Output Total 400 / 775 775 / 775 Balance 863 / 488 1974 0 / 0 Weight 119.862 kg 122.045 kg 124.369 kg Microbiology Reports for the Last 24 Hours: Microbiology 05/25/19 14:25 Rectum Gram Stain - Final 05/25/19 14:25 Rectum Abscess Culture - Preliminary NO GROWTH AFTER 24 HOURS Narrative: - Constitutional: no acute distress - *Routine HEENT Exam Head: Present: normocephalic Eye: Present: EOMI, PERRL ENT: Present: mucous membranes moist - *Routine Respiratory Exam Present: CTA bilaterally - *Routine Cardiovascular Exam Present: RRR - *Routine Abdominal Exam Present: soft, normoactive bowel sounds. Absent: tenderness - *Routine Extremities Exam Absent: cyanosis, clubbing, edema - *Routine Skin Exam Present: warm. Absent: rash - *Routine Neurological Exam Present: alert, oriented X3 Assessment and Plan (1) Perirectal abscess Current visit: Yes Status: Acute Category: Medical Code(s): K61.1 - Rectal abscess (2) Perianal abscess Current visit: Yes Status: Acute Category: Medical Code(s): K61.0 - Anal abscess (3) Sepsis Current visit: Yes Status: Resolved Qualifiers: Sepsis type: sepsis due to unspecified organism Sepsis acute organ dysfunction status: without acute organ dysfunction Qualified Code(s): A41.9 - Sepsis, unspecified organism Category: Medical Code(s): A41.9 - Sepsis, unspecified organism (4) Hypertension Current visit: Yes Status: Chronic Qualifiers: Hypertension type: essential hypertension Qualified Code(s): I10 - Essential (primary) hypertension Category: Medical Code(s): I10 - Essential (primary) hypertension (5) Alcohol dependence Current visit: No Status: Chronic Qualifiers: Substance use status: uncomplicated Qualified Code(s): F10.20 - Alcohol dependence, uncomplicated Category: Medical Code(s): F10.20 - Alcohol dependence, uncomplicated No signs of withdrawal (6) Chronic kidney disease, stage III (moderate) Current visit: Yes Status: Chronic Category: Medical Code(s): N18.3 - Chronic kidney disease, stage 3 (moderate) - Assessment and plan all Dx Assessment and Plan for all problems:: 43-year-old gentleman with perianal abscess and sepsis on admission. Significant improvement over the past 24 hours. Pain better managed on current regimen. Remains afebrile. Tolerating IV antibiotics. Given the extent of his surgical intervention, continues to require inpatient management of wound and IV antibiotics. Dressing changes per nursing twice daily. Patient requiring less oral opiates at this time. We will continue to watch for needed pain control at home. Anticipate he will still need pain management meds for dressing changes but unlikely he will need them throughout the day. Recommended he continue to be as active as possible with ambulating independently and bathing daily. Increase bowel regimen today. Condition remains guarded, prognosis good.
[2019-05-28 05:53] LABS: Basophils # 0.1 K/mm3 (0-0.2); Basophils % 0.7 % (0.1-2.0); Eosinophils # 0.5 K/mm3 (0.0-0.4); Eosinophils % 6.4 % (0.1-12.0); Hematocrit 47.2 % (42.0-52.0); Hemoglobin 15.2 g/dL (14.1-18.0); Lymphocytes # 2.1 K/mm3 (0.7-4.5); Lymphocytes % 27.3 % (10-50); Mean Corpuscular HGB Conc 32.2 g/dL (31.8-35.4); Mean Corpuscular Volume 100.9 fl (80-94); Mean Platelet Volume 8.3 fl (7.4-10.4); Monocytes # 0.5 K/mm3 (0.1-1.0); Monocytes % 6.6 % (1.7-9.3); Neutrophils # 4.6 K/mm3 (1.8-7.8); Neutrophils % 59.1 % (37.0-80.0); Platelet Count 243 K/mm3 (142-424); Red Blood Count 4.68 M/mm3 (4.60-6.20); Red Cell Distribution Width 13.5 % (11.5-17.5); White Blood Count 7.7 K/mm3 (4.8-10.8)
--- NOTE | 2019-05-28 07:20 | Progress Note ---
Subjective Narrative: resting. Per nursing, the patient has "been fine and has not complained". Exam Vital signs and Labs for Last 24 Hours: Temp Pulse Resp BP Pulse Ox 98.5 F 71 16 135/71 95 05/28/19 04:00 05/28/19 04:00 05/28/19 04:00 05/28/19 04:00 05/28/19 04:00 Laboratory Results - last 24 hr 05/27/19 05:55: WBC 9.5 D, RBC 4.52 L, Hgb 14.3, Hct 46.9, MCV 103.7 H, MCH 31.5 H, MCHC 30.4 L, RDW 14.6, Plt Count 229, MPV 8.4, Neut % (Auto) 63.8, Lymph % (Auto) 23.8, [place] % (Auto) 8.0, Eos % (Auto) 3.8, Baso % (Auto) 0.6, Neut # (Auto) 6.1, Lymph # (Auto) 2.3, [place] # (Auto) 0.8, Eos # (Auto) 0.4, Baso # (Auto) 0.1 05/28/19 05:40: WBC 7.7, RBC 4.68, Hgb 15.2, Hct 47.2, MCV 100.9 H, MCH 32.4 H, MCHC 32.2, RDW 13.5, Plt Count 243, MPV 8.3, Neut % (Auto) 59.1, Lymph % (Auto) 27.3, [place] % (Auto) 6.6, Eos % (Auto) 6.4, Baso % (Auto) 0.7, Neut # (Auto) 4.6, Lymph # (Auto) 2.1, [place] # (Auto) 0.5, Eos # (Auto) 0.5 H, Baso # (Auto) 0.1 I & O for Last 24 hours: Intake & Output 05/25/19 05/26/19 05/27/19 05/28/19 11:59 11:59 11:59 11:59 Intake Total 3173 / 3173 840 / 840 1690 / 1690 Output Total 1175 / 1175 Balance 1997 840 / 840 1690 / 1690 Weight 269 lb 1 oz 274 lb 3 oz 274 lb 5 oz Microbiology Reports for the Last 24 Hours: Microbiology 05/25/19 14:25 Rectum Gram Stain - Final 05/25/19 14:25 Rectum Abscess Culture - Preliminary NO GROWTH AFTER 48 HOURS 05/25/19 13:55 Blood Blood Culture - Preliminary NO GROWTH AFTER 48 HOURS 05/25/19 13:50 Blood Blood Culture - Preliminary NO GROWTH AFTER 48 HOURS - Constitutional no acute distress - *Routine Respiratory Exam Absent: respiratory distress - *Routine Cardiovascular Exam Present: RRR Progress Note: A&P (1) Perirectal abscess Status: Acute Assessment and plan: Overall, doing very well status post incision and drainage of complex posterior perianal/perirectal space abscess. Continue dressing changes Continue antibiotics Likely discharge home soon with PO abx, dressing changes, and outpatient follow- up Current Visit: Yes (2) Perianal abscess Status: Acute Current Visit: Yes (3) Sepsis Status: Resolved Current Visit: Yes (4) Hypertension Status: Chronic Current Visit: Yes (5) Alcohol dependence Status: Chronic Current Visit: No (6) Chronic kidney disease, stage III (moderate) Status: Chronic Current Visit: Yes
--- NOTE | 2019-05-28 08:44 | Progress Note ---
Internal Medicine - PN: Subj *Date: 05/28/19 *Time: 09:31 Interval history: Mr. Palomares did well overnight. Tolerating hydrocodone 4 times a day for his pain. Still used Dilaudid last night for dressing change however well- tolerated. Ambulating independently. Tolerating p.o. intake. Still has not had a bowel movement. Denies fever, chest pain, shortness of breath. Exam Vital signs and Labs for Last 24 Hours: Temp Pulse Resp BP Pulse Ox 98.6 F 68 17 134/76 98 05/28/19 08:00 05/28/19 08:00 05/28/19 08:00 05/28/19 08:00 05/28/19 08:00 Laboratory Results - last 24 hr 05/28/19 05:40: WBC 7.7, RBC 4.68, Hgb 15.2, Hct 47.2, MCV 100.9 H, MCH 32.4 H, MCHC 32.2, RDW 13.5, Plt Count 243, MPV 8.3, Neut % (Auto) 59.1, Lymph % (Auto) 27.3, [place] % (Auto) 6.6, Eos % (Auto) 6.4, Baso % (Auto) 0.7, Neut # (Auto) 4.6, Lymph # (Auto) 2.1, [place] # (Auto) 0.5, Eos # (Auto) 0.5 H, Baso # (Auto) 0.1 I & O for Last 24 hours: Intake & Output 05/25/19 05/26/19 05/27/19 05/28/19 23:59 23:59 23:59 23:59 Intake Total 1263 / 1263 2750 / 2750 1320 / 1320 370 / 370 Output Total 400 / 775 775 / 775 Balance 863 / 488 1974 / 1974 1320 / 1320 370 / 370 Weight 119.862 kg 122.045 kg 124.369 kg 124.426 kg Microbiology Reports for the Last 24 Hours: Microbiology 05/25/19 14:25 Rectum Gram Stain - Final 05/25/19 14:25 Rectum Abscess Culture - Preliminary NO GROWTH AFTER 48 HOURS 05/25/19 13:55 Blood Blood Culture - Preliminary NO GROWTH AFTER 48 HOURS 05/25/19 13:50 Blood Blood Culture - Preliminary NO GROWTH AFTER 48 HOURS Narrative: - Constitutional: no acute distress - *Routine HEENT Exam Head: Present: normocephalic Eye: Present: EOMI, PERRL ENT: Present: mucous membranes moist - *Routine Respiratory Exam Present: CTA bilaterally - *Routine Cardiovascular Exam Present: RRR - *Routine Abdominal Exam Present: soft, normoactive bowel sounds. Absent: tenderness - *Routine Extremities Exam Absent: cyanosis, clubbing, edema - *Routine Skin Exam Present: warm. Absent: rash - *Routine Neurological Exam Present: alert, oriented X3 Assessment and Plan (1) Perirectal abscess Current visit: Yes Status: Acute Category: Medical Code(s): K61.1 - Rectal abscess (2) Perianal abscess Current visit: Yes Status: Acute Category: Medical Code(s): K61.0 - Anal abscess (3) Sepsis Current visit: Yes Status: Resolved Qualifiers: Sepsis type: sepsis due to unspecified organism Sepsis acute organ dysfunction status: without acute organ dysfunction Qualified Code(s): A41.9 - Sepsis, unspecified organism Category: Medical Code(s): A41.9 - Sepsis, unspecified organism (4) Hypertension Current visit: Yes Status: Chronic Qualifiers: Hypertension type: essential hypertension Qualified Code(s): I10 - Essential (primary) hypertension Category: Medical Code(s): I10 - Essential (primary) hypertension (5) Alcohol dependence Current visit: No Status: Chronic Qualifiers: Substance use status: uncomplicated Qualified Code(s): F10.20 - Alcohol dependence, uncomplicated Category: Medical Code(s): F10.20 - Alcohol dependence, uncomplicated (6) Chronic kidney disease, stage III (moderate) Current visit: Yes Status: Chronic Category: Medical Code(s): N18.3 - Chronic kidney disease, stage 3 (moderate) - Assessment and plan all Dx Assessment and Plan for all problems:: Overall Mr. Palomares is doing well. White count has normalized. Pain stable on current regimen. Will transition to oral therapy for dressing changes in anticipation of discharge in the coming days. Additionally will transition oral antibiotics today and monitor for any clinical change. Continue to nambulate independently. Increased bowel regimen as I would like to have him have a bowel movement prior to discharge to see how he handles it and make sure we can keep the wound clean given its proximity to the anus.
--- NOTE | 2019-05-28 09:10 | Progress Note ---
Internal Medicine - PN: Subj *Date: 05/28/19 *Time: 09:09 Exam Vital signs and Labs for Last 24 Hours: Temp Pulse Resp BP Pulse Ox 98.6 F 68 17 134/76 98 05/28/19 08:00 05/28/19 08:00 05/28/19 08:00 05/28/19 08:00 05/28/19 08:00 Laboratory Results - last 24 hr 05/28/19 05:40: WBC 7.7, RBC 4.68, Hgb 15.2, Hct 47.2, MCV 100.9 H, MCH 32.4 H, MCHC 32.2, RDW 13.5, Plt Count 243, MPV 8.3, Neut % (Auto) 59.1, Lymph % (Auto) 27.3, [place] % (Auto) 6.6, Eos % (Auto) 6.4, Baso % (Auto) 0.7, Neut # (Auto) 4.6, Lymph # (Auto) 2.1, [place] # (Auto) 0.5, Eos # (Auto) 0.5 H, Baso # (Auto) 0.1 I & O for Last 24 hours: Intake & Output 05/25/19 05/26/19 05/27/19 05/28/19 23:59 23:59 23:59 23:59 Intake Total 1263 / 1263 2750 / 2750 1320 / 1320 370 / 370 Output Total 400 / 775 775 / 775 Balance 863 / 488 1974 / 1974 1320 / 1320 370 / 370 Weight 119.862 kg 122.045 kg 124.369 kg 124.426 kg Microbiology Reports for the Last 24 Hours: Microbiology 05/25/19 14:25 Rectum Gram Stain - Final 05/25/19 14:25 Rectum Abscess Culture - Preliminary NO GROWTH AFTER 48 HOURS 05/25/19 13:55 Blood Blood Culture - Preliminary NO GROWTH AFTER 48 HOURS 05/25/19 13:50 Blood Blood Culture - Preliminary NO GROWTH AFTER 48 HOURS Assessment and Plan (1) Perirectal abscess Current visit: Yes Status: Acute Category: Medical Code(s): K61.1 - Rectal abscess (2) Perianal abscess Current visit: Yes Status: Acute Category: Medical Code(s): K61.0 - Anal abscess (3) Sepsis Current visit: Yes Status: Resolved Qualifiers: Sepsis type: sepsis due to unspecified organism Sepsis acute organ dysfunction status: without acute organ dysfunction Qualified Code(s): A41.9 - Sepsis, unspecified organism Category: Medical Code(s): A41.9 - Sepsis, unspecified organism (4) Hypertension Current visit: Yes Status: Chronic Qualifiers: Hypertension type: essential hypertension Qualified Code(s): I10 - Essential (primary) hypertension Category: Medical Code(s): I10 - Essential (primary) hypertension (5) Alcohol dependence Current visit: No Status: Chronic Qualifiers: Substance use status: uncomplicated Qualified Code(s): F10.20 - Alcohol dependence, uncomplicated Category: Medical Code(s): F10.20 - Alcohol dependence, uncomplicated (6) Chronic kidney disease, stage III (moderate) Current visit: Yes Status: Chronic Category: Medical Code(s): N18.3 - Chronic kidney disease, stage 3 (moderate) The patient's infection will respond to the chosen ABx?: Yes Is the patient receiving the right drug, dose, and route?: Yes Could a more targeted ABx be ordered?: No (WBC DECREASED)
--- NOTE | 2019-05-29 10:15 | Progress Note ---
Subjective Narrative: Mr. Palomares is a 43-year-old male with history of perirectal abscess. Status post incision and drainage. Today is postoperative day #4. Pain well controlled. WBC normal. No complaints. Remains on oral antibiotics. Wound is clean. Dressing changes continued. Exam Vital signs and Labs for Last 24 Hours: Temp Pulse Resp BP Pulse Ox 98.8 F 78 17 144/62 H 98 05/29/19 07:59 05/29/19 07:59 05/29/19 07:59 05/29/19 07:59 05/29/19 08:00 I & O for Last 24 hours: Intake & Output 05/26/19 05/27/19 05/28/19 05/29/19 11:59 11:59 11:59 11:59 Intake Total 3173 / 3173 840 / 840 1690 / 1690 600 / 600 Output Total 1175 / 1175 Balance 1997 840 / 840 1690 / 1690 600 / 600 Weight 122.045 kg 124.369 kg 124.426 kg 123.604 kg Microbiology Reports for the Last 24 Hours: Microbiology 05/25/19 14:25 Rectum Gram Stain - Final 05/25/19 14:25 Rectum Abscess Culture - Preliminary NO GROWTH AFTER 72 HOURS - *Routine Rectal Exam Comments: Right perirectal incision and drainage site clean. Wound shallow. Unable to be packed secondary to minimal depth of wound. Clean dressing applied. No induration. No erythema. Progress Note: A&P (1) Perirectal abscess Status: Acute Current Visit: Yes (2) Perianal abscess Status: Acute Current Visit: Yes (3) Sepsis Status: Resolved Current Visit: Yes (4) Hypertension Status: Chronic Current Visit: Yes (5) Alcohol dependence Status: Chronic Current Visit: No (6) Chronic kidney disease, stage III (moderate) Status: Chronic Current Visit: Yes Assessment and Plan for All Diagnoses:: 1. Perirectal abscess. Status post incision and drainage. Wound clean. Discharge planning. Oral antibiotics for 7 days. Subsequent follow-up with Dr. Dennis 1 to 2 weeks after discharge.
--- NOTE | 2019-05-29 12:54 | Discharge Summary ---
General - General Admission date:: 05/25/19 Discharge date: 05/29/19 HPI HPI: 43-year-old gentleman with a history of hypertension who presented to clinic with worsening pain in his bottom progressing over the past 6 days. He states he has been unable to sit down for the past 3 days due to the intensity of the pain and road to clinic in his car laying on his back in the backseat. Denies rosita fever but has had subjective chills. Denies any nausea or vomiting. Has had to strain to have a bowel movement. Pain is intense to the point that he is crying in clinic on exam. Exam initially concerning for perianal abscess. Surgery was consulted and patient was directly admitted from clinic for surgical drainage of suspected abscess. Patient found to be tachycardic in clinic. Hospital Course Hospital Course: Mr. Palomares was admitted directly from clinic due to concern for perianal abscess. Found to have sepsis on admission, emergently taken to the OR for surgical debridement. Large complex abscess drained and packing placed. Patient initiated on pain regimen and IV antibiotics. He proceeded to have adequate response to antibiotics and pain regimen needing escalation of pain meds in the first 36 hours due to just discomfort with dressing changes however he was ambulating and feeling significantly better by 48 hours post I&D. Vitals normalized, he remained afebrile. Symptoms defervesced. Patient's white count normalized. He was tolerating good p.o. intake and had bowel movements prior to discharge with minimal difficulty. Overall significantly clinically improved. was educated on dressing changes and packing the wound however wound had begun to close significantly since initial surgery and was very shallow at time of discharge. Patient had minimal pain and minimal swelling compared to admission. Medically stable for discharge home with no abdominal pain, nausea, vomiting, fever, chest pain, shortness of breath. Plan to complete oral antibiotics as prescribed. Follow-up with Dr. Grewal in 1 to 2 weeks. Of note, was seen by Dr. Fernandes from who was weatherization operations manager for the weekend for surgery. He concurred with improvement in the wound. Objective Vital signs: Temp Pulse Resp BP Pulse Ox 98.8 F 78 17 144/62 H 98 05/29/19 07:59 05/29/19 07:59 05/29/19 07:59 05/29/19 07:59 05/29/19 08:00 Narrative: - Constitutional: no acute distress - *Routine HEENT Exam Head: Present: normocephalic Eye: Present: EOMI, PERRL ENT: Present: mucous membranes moist - *Routine Respiratory Exam Present: CTA bilaterally - *Routine Cardiovascular Exam Present: RRR - *Routine Abdominal Exam Present: soft, normoactive bowel sounds. Absent: tenderness - *Routine Extremities Exam Absent: cyanosis, clubbing, edema - *Routine Skin Exam Present: warm. Absent: rash - *Routine Neurological Exam Present: alert, oriented X3 Results Labs on day of discharge: Preliminary micro results at discharge 05/25/19 14:25 Abscess Culture - Preliminary Rectum NO GROWTH AFTER 72 HOURS 05/25/19 13:55 Blood Culture - Preliminary Blood NO GROWTH AFTER 48 HOURS 05/25/19 13:50 Blood Culture - Preliminary Blood NO GROWTH AFTER 48 HOURS DS: Diagnosis - Discharge Diagnosis (1) Perirectal abscess Status: Acute (2) Perianal abscess Status: Acute (3) Sepsis Status: Resolved (4) Hypertension Status: Chronic (5) Alcohol dependence Status: Chronic (6) Chronic kidney disease, stage III (moderate) Status: Chronic Discharge Plan - Patient Discharge Instructions Patient Instructions: DI for High Blood Pressure, DI for Surgical Site Infection, How to Change a Wet-to-dry Wound Dressing, DI for Anal Abscess - Follow up Plan Follow up with: Trevor Cortes MD [Primary Care Provider] - Hayder Lea MD [Staff Physician] - 1 week Disposition: Home, Self-Senior Living Medications: Home Medications Medication Instructions Recorded Confirmed Type Oxycodone HCl/Acetaminophen 1 each PO BID 7 Days #14 tab 05/29/19 Rx [Oxycodone W/Apap 325mg Tablet] Polyethylene Glycol 3350 [Miralax 17 gm PO TIDP PRN 10 Days #1 bottle 05/29/19 Rx 17gm Packet] Sennosides/Docusate Sodium 2 tab PO BID 10 Days #20 tab 05/29/19 Rx [Senokot-S Tablet] levoFLOXacin [Levaquin 750mg 750 mg PO DAILY 5 Days #5 tab 05/29/19 Rx tablet] metroNIDAZOLE [metroNIDAZOLE 500mg 500 mg PO TID 5 Days #15 tab 05/29/19 Rx Tablet] Prescriptions/Medication Reconciliation: New levoFLOXacin [Levaquin 750mg tablet] 750 mg PO DAILY 5 Days #5 tab Polyethylene Glycol 3350 [Miralax 17gm Packet] 17 gm PO TIDP PRN 10 Days #1 bottle PRN Reason: Constipation Sennosides/Docusate Sodium [Senokot-S Tablet] 2 tab PO BID 10 Days #20 tab Oxycodone HCl/Acetaminophen [Oxycodone W/Apap 325mg Tablet] 1 each PO BID 7 Days #14 tab metroNIDAZOLE [metroNIDAZOLE 500mg Tablet] 500 mg PO TID 5 Days #15 tab - Problem Reconciliation Problems Reviewed?: Yes
== END 2019-05-29 14:53 | disposition home or self-care (01) | DRG 346 ==
LOC: 2ND → OBSVTOIN 12:38
PROVIDERS: ADMIT Internal Medicine Adolescent Medicine; ATTEND Internal Medicine Adolescent Medicine
CPT/HCPCS: 36415; 80048; 80053; 85025; 87040; 87070; 87075; 87077; 87186; 87205; J2405; J2543

== ENCOUNTER → 2021-05-16 12:23 | Outpatient (CLI) | payer BC, SELFPAY ==
[2021-05-16 13:34] LABS: Alanine Aminotransferase 44 U/L (12-78); Albumin/Globulin Ratio 1.5 (1.1-1.8); Alkaline Phosphatase 61 U/L (38-126); Anion Gap 11.4 mEq/L (5-15); Aspartate Amino Transferase 28 U/L (17-59); Bilirubin,Total 0.5 mg/dl (0.2-1.3); Blood Urea Nitrogen 16 mg/dl (9-20); Calcium 9.1 mg/dl (8.4-10.2); Carbon Dioxide 24 mmol/L (22.0-30.0); Chloride 108 mmol/L (98-107); Chol/HDL Ratio 4.7 (1-3.5); Cholesterol 213 mg/dl (140-200); Estimated Glomerular Filt Rate 72 ml/min (>60); GFR (African American) 88 ML/MIN (>60); Globulin 2.6 g/dL (1.3-3.2); Glucose 196 mg/dl (74-100); HDL Cholesterol 45 mg/dl (40-60); Potassium 4.4 mmoL/L (3.5-5.1); Sodium 139 mmol/L (136-145); Total Protein,Serum 6.6 g/dl (6.3-8.2); Triglycerides 328 mg/dl (30-150); Uric Acid 7.3 mg/dl (3.5-8.5); VLDL Cholesterol 66 mg/dL (0-40)
[2021-05-16 13:45] LABS: Direct LDL Cholesterol 131.45 mg/dL (100-129)
[2021-05-16 16:20] LABS: Hemoglobin A1C 6.1 % (4.0-6.0)
== END ==
PROVIDERS: Visit Provider Nurse Practitioner Family
DX: Z00.00 Encounter for general adult medical examination without abnormal findings (principal); R03.0 Elevated blood-pressure reading, without diagnosis of hypertension; M10.072 Idiopathic gout, left ankle and foot; R73.9 Hyperglycemia, unspecified
CPT/HCPCS: 36415; 80053; 80061; 83036; 84550

== ENCOUNTER 2022-04-05 16:24 | Emergency (ER) | payer BC, SELFPAY ==
[2022-04-05 17:20] VITALS: BP 153/97; PULSE 75; RESP 16; RESP 18; TEMP 37; O2SAT 96; O2SAT 97; BMI 38.9
--- NOTE | 2022-04-05 17:57 | XR_ITS ---
PROCEDURE INFORMATION: Exam: XR Left Finger(s) Exam date and time: 04/05/2022 6:01 PM Age: 46 years old Clinical indication: Swelling; Fingers; Left; Additional info: Swollen middle finger TECHNIQUE: Imaging protocol: Radiologic exam of the Left fingers. Views: Minimum 2 views. COMPARISON: CR XR HAND LT 2V 04/05/2022 6:01 PM FINDINGS: Bones/joints: No fracture. No dislocation. No gross osseous changes of osteomyelitis or septic joint. Soft tissues: Soft tissue swelling in the 3rd finger, predominantly in the dorsal mid finger. No soft tissue air. No radiopaque foreign body. Small amount of hyperdense material beneath the distal edge of the fingernail incidentally noted. IMPRESSION: 1. No osseous abnormalities. 2. Soft tissue swelling.
--- NOTE | 2022-04-05 17:57 | XR_ITS ---
PROCEDURE INFORMATION: Exam: XR Left Hand Exam date and time: 04/05/2022 6:01 PM Age: 46 years old Clinical indication: Swelling; Hand; Left; Additional info: Swollen hand TECHNIQUE: Imaging protocol: Radiologic exam of the Left hand. Views: 1 or 2 views. COMPARISON: CR XR ELBOW LT MIN 3V 06/07/2019 3:18 AM FINDINGS: Bones/joints: No osseous abnormalities. No fracture or dislocation. No osseous changes of osteomyelitis or septic joint. Soft tissues: Moderate soft tissue swelling throughout the hand and fingers. Small amounts of hyperdense material beneath the distal edges of the fingernails incidentally noted. Two punctate radiodensities projecting over the lateral mid index finger may represent incidental skin surface material or punctate 1 mm foreign bodies. No soft tissue air. IMPRESSION: 1. No osseous abnormalities. No osseous changes of osteomyelitis or septic joint. 2. Nonspecific soft tissue swelling throughout the hand and fingers. No soft tissue air. 3. There are 2 punctate 1 mm radiodensities projecting over the lateral soft tissues of the mid index finger which might be incidental skin surface material given the additional radiodense materials beneath the fingernail edges, although cannot exclude punctate soft tissue foreign bodies.
--- NOTE | 2022-04-05 18:42 | PC.NURSE ---
LACTIC AND CULTURES DRAWN JUST NOT ORDERED
[2022-04-05 18:55] LABS: Alanine Aminotransferase 56 U/L (12-78); Albumin Level 4.3 g/dl (3.5-5.0); Albumin/Globulin Ratio 1.7 (1.1-1.8); Alkaline Phosphatase 65 U/L (38-126); Anion Gap 9.8 mEq/L (5-15); Aspartate Amino Transferase 41 U/L (17-59); Bilirubin,Total 0.7 mg/dl (0.2-1.3); Blood Urea Nitrogen 13 mg/dl (9-20); Calcium 9.1 mg/dl (8.4-10.2); Carbon Dioxide 27 mmol/L (22.0-30.0); Chloride 106 mmol/L (98-107); Creatinine Clearance Estimated 125 mL/min (50-200); Estimated Glomerular Filt Rate 55 ml/min (>60); GFR (African American) 66 ML/MIN (>60); Globulin 2.5 g/dL (1.3-3.2); Glucose 103 mg/dl (74-100); Potassium 3.8 mmoL/L (3.5-5.1); Sodium 139 mmol/L (136-145); Total Protein,Serum 6.8 g/dl (6.3-8.2); Uric Acid 8.5 mg/dl (3.5-8.5)
[2022-04-05 19:01] LABS: Basophils # 0.1 K/mm3 (0-0.2); Basophils % 0.8 % (0.1-2.0); Eosinophils # 0.4 K/mm3 (0.0-0.4); Eosinophils % 4.2 % (0.1-12.0); Hemoglobin 14.9 g/dL (14.1-18.0); Lymphocytes # 1.9 K/mm3 (0.7-4.5); Lymphocytes % 19.1 % (10-50); Mean Corpuscular HGB Conc 32.3 g/dL (31.8-35.4); Mean Corpuscular Hemoglobin 31.6 pg (27.0-31.2); Mean Corpuscular Volume 97.5 fl (80-94); Monocytes # 0.6 K/mm3 (0.1-1.0); Monocytes % 6.5 % (1.7-9.3); Neutrophils # 6.7 K/mm3 (1.8-7.8); Neutrophils % 69.3 % (37.0-80.0); Platelet Count 180 K/mm3 (142-424); Red Blood Count 4.72 M/mm3 (4.60-6.20); White Blood Count 9.7 K/mm3 (4.8-10.8)
--- NOTE | 2022-04-05 19:19 | HMH.EDGENADL ---
Discharge Plan Disposition Patient Disposition: Home, Self-Care Condition: Good Chief Complaint: Skin/Abscess/Foreign Body Prescriptions Prescriptions: New clindamycin HCl 300 mg capsule 300 mg PO QID Qty: 40 0RF No Action levofloxacin 500 MG tablet 500 mg PO DAILY Qty: 5 0RF metronidazole 500 MG tablet 500 mg PO TID 5 Days Qty: 15 0RF Referrals Referrals: Kera Emanuel APRN [Primary Care Provider] - Enter time for follow up Activity Restrictions/Add. Instructions Additional Instructions/Restrictions: Bandage and splint until follow-up next week with your primary care provider. Follow-up with primary care provider next week. You may remove the bandage and splint daily to wash the hand and then reapply bandage and splint afterwards. Take antibiotic clindamycin as prescribed. Return to the emergency department if worsening pain, or worsening swelling, or red streaks going up arm, or fever. Clinical Impressions Clinical Impression: Cellulitis Qualifiers: Site of cellulitis: extremity Site of cellulitis of extremity: finger Laterality: left Qualified Code(s): L03.012 - Cellulitis of left finger Instructions Patient Instructions: DI for Skin Abscess Discharge ED Provider: Jose De Jesus Sahni General Adult HPI General Chief complaint: Skin/Abscess/Foreign Body Stated complaint: left middle finger redness/swelling Time Seen by Provider: 04/05/22 19:16 Mode of Arrival: Ambulatory Limitations: No Limitations Description of Symptoms (Recalled from ER Triage Doc. by RN): Pt sent to ED by PCP for eval of redness and swelling to knuckle of middle finger on Lt hand History of Present Illness HPI narrative: The patient is sent in by his primary care provider, Ioana Emanuel, in [place]. He has painful swelling and redness over the PIP joint of his middle finger left hand. He says that he cut the proximal phalanx of that finger about a year ago. He reported himself with superglue. Ever since then he has had a knot over the dorsum of the PIP joint. He says that about 6 or 8 weeks ago the knot began getting painful and he saw his primary care provider in the office. He wanted her to cut it open to see if there was a piece of metal in there but she declined. He says that she did sprayed with numbing spray and aspirated with a syringe and needle. He says she put him on an antibiotic that he took twice a day for 10 days. The knot never went away and yesterday day it began getting more severely painful and swelling and getting red. He complains of pain on the dorsum of the PIP joint and the proximal phalanx ulnar side. He is getting some swelling of the dorsum of the hand as well. He has no pain or swelling along the palm are/flexor surface of the finger or hand. He is not able to flex his little finger because of pain. He saw Ioana Emanuel in the office and she sent him here for evaluation. Patient also has gout but has never affected his hand and finger like this. He takes an [id number] gout medication. Related Data Previous Rx's Medication Instructions Recorded levofloxacin 500 mg tablet 500 mg PO DAILY #5 tabs 06/26/19 metronidazole 500 mg tablet 500 mg PO TID 5 days #15 tabs 06/26/19 clindamycin HCl 300 mg capsule 300 mg PO QID #40 caps 04/05/22 Allergies Allergy/AdvReac Type Severity Reaction Status Date / Time No Known Allergies Allergy Verified 05/25/19 13:33 PFSH PFSH Social History Smoking Status: Never smoker alcohol intake: never substance use type: marijuana current occupational status: employed household members: spouse housing: house ROS Obtained: Yes Systems reviewed as appropriate & no additional complaints except as documented Constitutional Constitutional: Denies fever(s) and Denies weakness Musculoskeletal Musculoskeletal: Reports as per HPI and Denies numbness Integumentary/Breasts Skin/Breast: Reports as per HPI Neurologic Neurologic: Denies num
[2022-04-05 20:34] VITALS: BP 136/80; PULSE 90; RESP 19; TEMP 36.9; O2SAT 96
== END 2022-04-05 21:01 | disposition home or self-care (01) ==
PROVIDERS: Emergency Provider Emergency Medicine; PCP Nurse Practitioner Family
DX: L03.012 Cellulitis of left finger (principal); M10.9 Gout, unspecified; Z79.899 Other long term (current) drug therapy
CPT/HCPCS: 26010; 73120; 73140; 80053; 84550; 85025; 99283

== ENCOUNTER → 2022-05-16 15:33 | Outpatient (CLI) | payer BC, SELFPAY ==
[2022-05-16 16:04] LABS: Basophils # 0.1 K/mm3 (0-0.2); Basophils % 1.6 % (0.1-2.0); Eosinophils # 0.6 K/mm3 (0.0-0.4); Eosinophils % 6.6 % (0.1-12.0); Hematocrit 45.6 % (42.0-52.0); Hemoglobin 15.2 g/dL (14.1-18.0); Lymphocytes # 2.5 K/mm3 (0.7-4.5); Lymphocytes % 28.2 % (10-50); Mean Corpuscular HGB Conc 33.2 g/dL (31.8-35.4); Mean Corpuscular Hemoglobin 31.6 pg (27.0-31.2); Mean Corpuscular Volume 95.2 fl (80-94); Mean Platelet Volume 9.1 fl (7.4-10.4); Monocytes # 0.6 K/mm3 (0.1-1.0); Monocytes % 6.7 % (1.7-9.3); Neutrophils % 56.9 % (37.0-80.0); Platelet Count 215 K/mm3 (142-424); Red Blood Count 4.79 M/mm3 (4.60-6.20); Red Cell Distribution Width 13.9 % (11.5-17.5); White Blood Count 8.7 K/mm3 (4.8-10.8)
[2022-05-16 16:30] LABS: Chloride 100 mmol/L (98-107); Potassium 4.7 mmoL/L (3.5-5.1); Sodium 137 mmol/L (136-145)
[2022-05-16 16:32] LABS: Alanine Aminotransferase 40 U/L (12-78); Aspartate Amino Transferase 30 U/L (17-59); Bilirubin,Total 0.3 mg/dl (0.2-1.3); Blood Urea Nitrogen 17 mg/dl (9-20); Estimated Glomerular Filt Rate 65 ml/min (>60); GFR (African American) 79 ML/MIN (>60)
[2022-05-16 16:33] LABS: Albumin Level 4.4 g/dl (3.5-5.0); Albumin/Globulin Ratio 1.9 (1.1-1.8); Alkaline Phosphatase 57 U/L (38-126); Anion Gap 12.7 mEq/L (5-15); Carbon Dioxide 29 mmol/L (22.0-30.0); Globulin 2.3 g/dL (1.3-3.2); Glucose 93 mg/dl (74-100); Total Protein,Serum 6.7 g/dl (6.3-8.2)
== END ==
PROVIDERS: PCP Nurse Practitioner Family; Visit Provider Orthopaedic Surgery
DX: Z01.818 Encounter for other preprocedural examination (principal); R22.32 Localized swelling, mass and lump, left upper limb
CPT/HCPCS: 36415; 80053; 85025

== ENCOUNTER 2022-05-24 06:07 | Day surgery (SDC) | payer BC, SELFPAY ==
[2022-05-22 14:41] VITALS: BMI 37.7
[2022-05-24 06:36] VITALS: BP 140/95; PULSE 80; RESP 18; TEMP 36.9; O2SAT 96; BMI 37.7
[2022-05-24 08:35] VITALS: BP 123/78; PULSE 73; RESP 16; TEMP 35.9; O2SAT 95
--- NOTE | 2022-05-24 08:36 | P.OP_ITS ---
Date of procedure: 05/24/22 Pre-op Diagnosis:: Abscess soft tissue mass left middle finger Post-op Diagnosis:: Abscess with foreign bodies left middle finger Procedure performed:: Irrigation and debridement with removal of foreign bodies (metal shards) left middle finger Surgeon:: Eugnee Moyer DO BINDERY CUTTER OPERATOR:: Alexx Burt Anesthesia: MAC and regional Estimated blood loss (mL): 0 Operative findings:: Hypertrophic scarring and small metal foreign bodies Operative note:: Patient is identified preoperatively. Left middle finger marked with a yes and my initials. Transferred operative suite. Placed upon operating bed. Patient given sedation and digital block performed. Left upper extremity prepped and draped in normal sterile fashion. Once prepped and draped final operative timeout performed to identify proper patient procedure and extremity. Everyone involved in the case agreed. There were no counter indications to beginning. He did receive preoperative antibiotics with Ancef. Marking pen was used for planned incision over the dorsum of the left middle finger. Esmarch was used to exsanguinate extremity. Pneumatic tourniquet was plated to 250 mmHg. Skin F was used incise through skin. Careful dissection was taken down with scissors. There was very thick scarring and hypertrophic tissue present no evidence of active drainage of pus or abscess. There was evidence of small metallic foreign bodies present. Using the knife and rongeur debridement of the hypertrophic scar was performed along with removal of the small metallic bodies. Copious irrigation of the wound was performed. Rongeur was used to debride the hypertrophic scarring in this area. Copious irrigation repeated. Skin was closed with 3-0 nylon stitch sterile dressing placed. Patient waken sedation taken recovery in stable condition. Tourniquet time (min): 22 Condition: stable Disposition: PACU Complications:: None apparent
[2022-05-24 08:45] VITALS: BP 133/85; PULSE 62; RESP 16; O2SAT 96
[2022-05-24 08:55] VITALS: BP 146/78; PULSE 56; RESP 17; O2SAT 96
[2022-05-24 09:05] VITALS: BP 136/78; PULSE 55; RESP 18; O2SAT 97
--- NOTE | 2022-05-24 10:00 | EXP.ANES.CKL ---
[facility] Medical History Hypertension Surgical History H/O vasectomy History of hernia repair Family History Other No significant family history Social History Smoking Status: Never smoker alcohol intake: current substance use type: marijuana current occupational status: employed Travel in the last 8 weeks: None household members: spouse housing: house [facility] Anesthesia Checklist Patient Identification Patient Identification: Verbal (Name & ) Structural Data Admitted From: Home Planned Operative Procedure/s: excision neoplasm l middle finger Consent for Planned Operative Procedure(s) Verified: Yes NPO Status Verified Time NPO: 00:00 Additional verifications Anesthesia Reactions: No Hx Blood Transfusions: No Blood Transfusion Reaction: No Airway Assessment C-Spine Mobility Assessed: Yes TMJ Mobility Assessed: Yes Dentition: Poor Dentition Neurological Assessment Level of Consciousness: Awake, Alert and Appropriate Anesthesia Plan Anesthesia Risk discussed: Yes Anesthesia Plan: Verified ASA Class: II Anesthesia Type: MAC
== END 2022-05-24 09:06 | disposition home or self-care (01) ==
PROVIDERS: PCP Nurse Practitioner Family; Visit Provider Orthopaedic Surgery
PROC: (CPT 10121; principal; 2022-05-24 07:30)
DX: L02.512 Cutaneous abscess of left hand (principal); M79.5 Residual foreign body in soft tissue; L91.0 Hypertrophic scar; L90.5 Scar conditions and fibrosis of skin
CPT/HCPCS: 10121; 96374

== ENCOUNTER → 2022-11-15 11:18 | Outpatient (CLI) | payer BC, SELFPAY ==
--- NOTE | 2022-11-15 11:33 | XR_ITS ---
FINAL REPORT TECHNIQUE: Chest PA & Lateral CLINICAL HISTORY: COUGH FINDINGS: 2 views of the chest were performed. The heart size is normal. The mediastinum is within normal limits. There is no acute cardiopulmonary process. There are no pleural effusions. There is no pneumothorax. The bony thorax appears intact. IMPRESSION: No acute cardiopulmonary process. Reviewed, Interpreted and Dictated by Johnny Sifuentes MD Transcribed by Josefina Grant Authenticated and [facility]
--- NOTE | 2022-11-15 11:34 | XR_ITS ---
FINAL REPORT CLINICAL HISTORY: KNEE PAIN POSTERIOR FINDINGS: LEFT KNEE 3 views of the left knee were obtained. There is no acute fracture or dislocation. Visualized joint spaces are normally aligned. Joint spaces are intact. There is prominent soft tissue swelling anterior to the patella measuring approximately 2.3 cm in depth. IMPRESSION: Prominent soft tissue swelling anterior to the patella. No acute bony abnormality. Reviewed, Interpreted and Dictated by Johnny Sifuentes MD Transcribed by Josefina Grant Authenticated and [facility]
[2022-11-15 12:06] LABS: Bordetella Pertussis Not Detected (NotDetected); Chlamydophila Pneumoniae, PCR Not Detected (NotDetected); Coronavirus 19, PCR Not Detected (NotDetected); Coronavirus 229E Not Detected (NotDetected); Coronavirus NL63 Not Detected (NotDetected); Coronavirus OC43 Not Detected (NotDetected); Coronovirus HKU1,PCR Not Detected (NotDetected); Human Metapneumovirus Not Detected (NotDetected); Influenza A, PCR Not Detected (NotDetected); Influenza AH1, 2009 Not Detected (NotDetected); Influenza AH1, PCR Not Detected (NotDetected); Influenza AH3,PCR Not Detected (NotDetected); Influenza B, PCR Not Detected (NotDetected); Microscopic, Urine URINE MICROSCOPIC (MICROSCOPIC); Mycoplasma Pneumoniae, PCR Not Detected (NotDetected); Parainfluenza 1, PCR Not Detected (NotDetected); Parainfluenza 2, PCR Not Detected (NotDetected); Parainfluenza 3, PCR Not Detected (NotDetected); Parainfluenza 4, PCR Not Detected (NotDetected); Respiratory Syncytial Virus Not Detected (NotDetected); Rhinovirus/Enterovirus Not Detected (NotDetected)
[2022-11-15 12:41] LABS: Basophils # 0.1 K/mm3 (0-0.2); Basophils % 0.5 % (0.1-2.0); Eosinophils # 0.2 K/mm3 (0.0-0.4); Eosinophils % 1.6 % (0.1-12.0); Hemoglobin 16.3 g/dL (14.1-18.0); Lymphocytes # 1.5 K/mm3 (0.7-4.5); Lymphocytes % 14.7 % (10-50); Mean Corpuscular HGB Conc 32.7 g/dL (31.8-35.4); Mean Corpuscular Hemoglobin 30.4 pg (27.0-31.2); Mean Corpuscular Volume 93.1 fl (80-94); Mean Platelet Volume 8.5 fl (7.4-10.4); Monocytes # 0.7 K/mm3 (0.1-1.0); Monocytes % 7.2 % (1.7-9.3); Neutrophils # 7.9 K/mm3 (1.8-7.8); Neutrophils % 76.2 % (37.0-80.0); Platelet Count 262 K/mm3 (142-424); Red Blood Count 5.37 M/mm3 (4.60-6.20); Red Cell Distribution Width 14.2 % (11.5-17.5); White Blood Count 10.4 K/mm3 (4.8-10.8)
[2022-11-15 12:47] LABS: Appearance,Urine CLEAR (Clear); Blood, Urine Negative (Negative); Color,Urine YELLOW (Yellow); Glucose,Urine (UA) Negative (Negative); Ketones,Urine Negative (Negative); Leukocyte Esterase,Urine Negative (Negative); Nitrate,Urine Negative (Negative); PH,Urine 5.5 (5.0-8.5); Protein,Urine Negative (Negative); Specific Gravity, Urine >= 1.030 (1.005-1.030); Urobilinogen,Urine 0.2 EU/dl (0.2)
[2022-11-15 12:49] LABS: Bilirubin,Urine 1+ (Negative)
[2022-11-15 12:51] LABS: Chloride 99 mmol/L (98-107); Sodium 139 mmol/L (136-145)
[2022-11-15 12:53] LABS: Blood Urea Nitrogen 20 mg/dl (9-20)
[2022-11-15 12:54] LABS: Alanine Aminotransferase 40 U/L (12-78); Albumin Level 4.6 g/dl (3.5-5.0); Alkaline Phosphatase 83 U/L (38-126); Aspartate Amino Transferase 37 U/L (17-59); Bacteria,Urine Trace /lpf; Bilirubin,Total 0.9 mg/dl (0.2-1.3); Calcium 9.2 mg/dl (8.4-10.2); Carbon Dioxide 30 mmol/L (22.0-30.0); Estimated Glomerular Filt Rate 50 ml/min (>60); GFR (African American) 61 ML/MIN (>60); Glucose 125 mg/dl (74-100); Hyaline Casts,Urine Occasional #/lpf (0); Squamous Epithelial Cell,Urine Occasional #/hpf (0-5)
[2022-11-15 12:57] LABS: Albumin/Globulin Ratio 1.7 (1.1-1.8); Globulin 2.7 g/dL (1.3-3.2); Total Protein,Serum 7.3 g/dl (6.3-8.2)
[2022-11-15 13:33] LABS: Uric Acid 8.7 mg/dl (3.5-8.5)
[2022-11-15 14:28] LABS: Adenovirus,PCR Detected (NotDetected)
== END ==
PROVIDERS: PCP Nurse Practitioner Family; Visit Provider Nurse Practitioner Family
DX: R06.02 Shortness of breath (principal); R05.9 Cough, unspecified; M54.50 Low back pain, unspecified; M25.562 Pain in left knee
CPT/HCPCS: 36415; 71046; 73562; 80053; 81001; 84550; 85025; 85378; 87581; 87632; 87798; C9803; U0003; U0005

== ENCOUNTER 2024-07-05 09:58 | Outpatient (CLI) | payer BC, SELFPAY ==
[2024-07-05 10:37] LABS: Basophils # 0.1 K/mm3 (0-0.2); Basophils % 0.9 % (0.1-2.0); Eosinophils # 0.5 K/mm3 (0.0-0.4); Eosinophils % 6.7 % (0.1-12.0); Hematocrit 46.7 % (42.0-52.0); Hemoglobin 16.6 g/dL (14.1-18.0); Lymphocytes # 1.9 K/mm3 (0.7-4.5); Lymphocytes % 29.2 % (10-50); Mean Corpuscular HGB Conc 35.6 g/dL (31.8-35.4); Mean Corpuscular Hemoglobin 33.1 pg (27.0-31.2); Mean Corpuscular Volume 93.2 fl (80-94); Mean Platelet Volume 8.8 fl (7.4-10.4); Monocytes # 0.3 K/mm3 (0.1-1.0); Monocytes % 5.2 % (1.7-9.3); Neutrophils # 3.9 K/mm3 (1.8-7.8); Neutrophils % 58.1 % (37.0-80.0); Platelet Count 165 K/mm3 (142-424); Red Blood Count 5.01 M/mm3 (4.60-6.20); Red Cell Distribution Width 14.8 % (11.5-17.5); White Blood Count 6.6 K/mm3 (4.8-10.8)
[2024-07-05 10:46] LABS: Albumin Level 4.3 g/dl (3.5-5.0); Chloride 106 mmol/L (98-107); Potassium 4.7 mmoL/L (3.5-5.1); Sodium 140 mmol/L (136-145)
[2024-07-05 10:49] LABS: Alanine Aminotransferase 36 U/L (12-78); Alkaline Phosphatase 43 U/L (38-126); Anion Gap 12.7 mEq/L (5-15); Aspartate Amino Transferase 30 U/L (17-59); Bilirubin,Total 0.7 mg/dl (0.2-1.3); Blood Urea Nitrogen 19 mg/dl (9-20); Calcium 9.7 mg/dl (8.4-10.2); Carbon Dioxide 26 mmol/L (22.0-30.0); Cholesterol 209 mg/dl (140-200); Estimated Glomerular Filt Rate 59 ml/min (>60); GFR (African American) 71 ML/MIN (>60); Globulin 2.2 g/dL (1.3-3.2); Glucose 106 mg/dl (74-100); Total Protein,Serum 6.5 g/dl (6.3-8.2); Triglycerides 245 mg/dl (30-150); VLDL Cholesterol 49 mg/dL (0-40)
[2024-07-05 10:50] LABS: Chol/HDL Ratio 4.8 (1-3.5); HDL Cholesterol 44 mg/dl (40-60)
[2024-07-05 11:01] LABS: Direct LDL Cholesterol 123.31 mg/dL (100-129)
[2024-07-05 11:06] LABS: Free T4 (Free Thyroxine) 0.79 ng/dl (0.78-2.19)
[2024-07-05 11:20] LABS: Thyroid Stimulating Hormone 1.13 uIU/mL (0.465-4.68)
[2024-07-05 12:08] LABS: Hemoglobin A1C 5.2 % (4.0-6.0)
== END 2024-07-05 23:59 | disposition home or self-care (01) ==
LOC: LAB 10:00
PROVIDERS: Visit Provider Physician Assistant
DX: E78.2 Mixed hyperlipidemia (principal); Z90.5 Acquired absence of kidney; Z83.438 Family history of other disorder of lipoprotein metabolism and other lipidemia; R73.03 Prediabetes; R53.83 Other fatigue; Z00.00 Encounter for general adult medical examination without abnormal findings
CPT/HCPCS: 36415; 80050; 80053; 80061; 83036; 84439; 84443; 85025

== ENCOUNTER 2024-07-28 14:47 | Outpatient (CLI) | payer BC, SELFPAY ==
[2024-07-28 15:27] LABS: Carbon Dioxide 25 mmol/L (22.0-30.0); Glucose 108 mg/dl (74-100); Sodium 141 mmol/L (136-145)
[2024-07-28 15:28] LABS: Blood Urea Nitrogen 20 mg/dl (9-20); Chloride 109 mmol/L (98-107); Estimated Glomerular Filt Rate 59 ml/min (>60); GFR (African American) 71 ML/MIN (>60)
== END 2024-07-28 23:59 | disposition home or self-care (01) ==
LOC: LAB 14:47
PROVIDERS: PCP Nurse Practitioner Family; Visit Provider Surgery
DX: L72.0 Epidermal cyst (principal)
CPT/HCPCS: 36415; 80048

== ENCOUNTER 2024-07-29 10:09 | Day surgery (SDC) | payer BC, SELFPAY ==
[2024-07-29] VITALS (10 sets, daily range): BP systolic 122–154; BP diastolic 72–88; PULSE 78–93; RESP 14–18; TEMP 36.3–36.6; O2SAT 90–97; BMI 38.9
--- NOTE | 2024-07-29 10:32 | EXP.ANES.CKL ---
[facility] Disclaimer: The information contained in this section may have been updated after the patient was seen, as this information can be updated by other users. Medical History Hypertension Surgical History H/O vasectomy History of hernia repair Family History Other No significant family history Social History Smoking Status: Never smoker alcohol intake: current alcohol intake frequency: 3 or more drinks per day (No history of withdrawals) substance use type: marijuana current occupational status: employed Travel in the last 8 weeks: None household members: spouse housing: house Have you lived/traveled outside US in past 30 days?: No Contact w/someone who lives/traveled outside US past 30 days?: No Exposure to someone with infectious disease in past 14 days?: No Do you have a fever (greater than 100.4 F or 38 C)?: No Have you tested positive for COVID-19: No Exposed to someone with COVID-19 in past 14 days?: No Do you have a sore throat?: No Do you have a cough?: No Do you have any weakness?: No Do you have any diarrhea?: No Are you experiencing any unusual bleeding?: No Do you have any muscle aches/pain?: No Do you have any abdominal pain?: No Are you experiencing loss of taste or smell?: No [facility] Anesthesia Checklist Patient Identification Patient Identification: Arm Band and Verbal (Name & ) Structural Data Admitted From: Home Planned Operative Procedure/s: Excision mid back cyst Consent for Planned Operative Procedure(s) Verified: Yes Verified Documents: Surgical Consent and History and Physical NPO Status Verified Time NPO: 00:00 Additional verifications Anesthesia Reactions: No Hx Blood Transfusions: No Blood Transfusion Reaction: No Airway Assessment Mallampati Score:: Class II C-Spine Mobility Assessed: Yes TMJ Mobility Assessed: Yes Dentition: Good Dentition Neurological Assessment Level of Consciousness: Awake Hx Seizures: No Numbness or tingling in extremities: No Anesthesia Plan Anesthesia Risk discussed: Yes Anesthesia Plan: Verified ASA Class: II Anesthesia Type: General
[2024-07-29] MEDS: 0.9 % SODIUM CHLORIDE 1000ML 1,000 ML 25 ML IV (10:36)
[2024-07-29] MEDS: CEFAZOLIN SODIUM 2 GM in 0.9 % SODIUM CHLORIDE 100 ML IV (11:00)
[2024-07-29] MEDS: LIDOCAINE 1% 20ML MDV 20 ML (11:17)
--- NOTE | 2024-07-29 11:53 | EXP.ANES.I ---
[facility] Anesthesia Record Part I Anesthesia Record I Intake, IV Amount: 500 Hydration: Adequate Estimated blood loss (mL): 5 Urine output (mL): 0 Blood Pressure: 125/74 SaO2: 94 Pulse Rate: 90 Airway Patency: Patent Respiratory Rate: 14 Temperature: 97.8 F Patient is:: Awake Stable to PACU at:: 11:50
--- NOTE | 2024-07-29 11:55 | EXP.OP.NOTE ---
Date of procedure: 07/29/24 Pre-op Diagnosis:: Mid back 3.5 cm sebaceous cyst Post-op Diagnosis:: Same Procedure performed:: Excision of 3.5 cm sebaceous cyst from mid back Surgeon:: Hayder Lea MD CASH POSTING REPRESENTATIVE:: Aftab Mauro Anesthesia: local and LMA Estimated blood loss (mL): 10 Operative findings:: Lesion excised in toto Operative note:: After informed consent was obtained the patient was taken to the operating room and placed in the supine position. General anesthesia with laryngeal mask airway was achieved. He was transferred to a right lateral decubitus position. His mid back region was prepped and draped in a sterile fashion. After infiltration with local anesthetic an elliptical incision was made around the lesion. The lesion was excised in toto and passed off for pathologic evaluation. Electrocautery was utilized to achieve hemostasis. To facilitate closure lateral subcutaneous flaps were elevated utilizing electrocautery. The deep subcutaneous tissue was reapproximated with interrupted Vicryl. Skin was then closed with 4-0 nylon in an interrupted mattress fashion. Dressings were applied and the patient was transferred to recovery in stable condition. Condition: stable Disposition: PACU Specimens:: Mid back sebaceous cyst Complications:: No immediate
--- NOTE | 2024-07-29 13:10 | EXP.ANES.II ---
[facility] Anesthesia Record Part II Anesthesia Record Part II Discharge Time: 12:12 Destination: Surgical Day Care (OP Surgery) PACU nurse assessment reviewed?: Yes Patient Condition:: Good Anesthesia Complications:: None Swallowing reflex intact?: Yes Airway Patency: Patent Cyanosis?: No Blood Pressure: 129/88 SaO2: 93 Respiratory Rate: 18 Pulse Rate: 78 Temperature: 97.4 F Mental Status: Alert & Oriented Pain level:: 0 Nausea and/or vomitting:: None Intake, IV Amount: 0 Hydration: Adequate
== END 2024-07-29 12:56 | disposition home or self-care (01) ==
PROVIDERS: PCP Nurse Practitioner Family; Visit Provider Surgery
PROC: (CPT 11404; principal; 2024-07-29 11:35)
DX: L72.3 Sebaceous cyst (principal)
CPT/HCPCS: 11404; 96374; J0690; J2250; J3010; J7030

== ENCOUNTER 2024-09-22 15:22 | Outpatient (CLI) | payer BC, SELFPAY ==
--- NOTE | 2024-09-22 15:25 | US_ITS ---
FINAL REPORT CLINICAL HISTORY: CKD STAGE II COMPARISON: None FINDINGS: RENAL ULTRASOUND Ultrasound images of the kidneys were obtained. Limited images of the liver parenchyma demonstrates normal echogenicity. The left kidney is enlarged, likely reflective of compensatory hypertrophy. There is mild left hydronephrosis. No evidence of renal mass. 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 IMPRESSION: Mild obstructive changes of the left kidney with associated compensatory hypertrophy. Reviewed, Interpreted and Dictated by Flavia Rosales MD Transcribed by Vandana Castle Authenticated and [facility]
== END 2024-09-22 23:59 | disposition home or self-care (01) ==
LOC: RAD 15:23
PROVIDERS: PCP Nurse Practitioner Family; Visit Provider Nurse Practitioner Family
DX: N18.2 Chronic kidney disease, stage 2 (mild) (principal)
CPT/HCPCS: 76770

== ENCOUNTER 2025-06-08 18:24 | Outpatient (CLI) | payer BC, SELFPAY ==
--- OUTSIDE RECORDS SUMMARY | 2025-06-08 18:28 | XMS_ITS | Clinical Summary ---
Author Organization Healthcare Address [address] [place] [address] Care Team Providers Care Newsagent Name Role Phone Trevor Cortes MD Primary Care Provider [phone] Social History Tobacco Use Types Packs/Day Years Used Date Smoking Tobacco: Never Alcohol Use Standard Drinks/Week Comments No 0 (1 standard drink = 0.6 oz pure alcohol) Alcoholic Drinks/day: Denies alcohol consumption Sex and Gender Information Value Date Recorded Sex Assigned at Not on file Legal Sex Male 6:10 PM EDT Gender Identity Not on file Sexual Orientation Not on file Last Filed Vital Signs Vital Sign Reading Time Taken Comments Blood Pressure - - Pulse - - Temperature - - Respiratory Rate - - Oxygen Saturation - - Inhaled Oxygen Concentration - - Weight 130 kg (286 lb 2.5 oz) 06/21/2016 11:50 A M EST Height 185.4 cm (6' 1 ) 06/21/2016 11:50 AM EST Body Mass Index 37.75 06/21/2016 11:50 AM EST Plan of Treatment Not on file Care Teams Newsagent Relationship Specialty Start Date End Date Trevor Cortes MD [address] [place] [address] PCP - General 12/22/20
--- NOTE | 2025-06-08 18:32 | XR_ITS ---
PROCEDURE INFORMATION: Exam: XR Left Knee Exam date and time: 06/08/2025 6:24 PM Age: 49 years old Clinical indication: Other: Left knee pain; Additional info: Left knee pain. [place] is best image obtainable TECHNIQUE: Imaging protocol: Radiologic exam of the left knee. Views: 3 views. COMPARISON: CR XR KNEE LT 3V 11/15/2022 11:53 AM FINDINGS: Bones/joints: Moderate osteophytosis and degenerative changes involve the 3 compartments of the left knee. No evidence of acute osseous abnormality. Soft tissues: Normal. IMPRESSION: 1. Moderate osteophytosis and degenerative changes involve the 3 compartments of the left knee. 2. No evidence of acute osseous abnormality.
== END 2025-06-08 23:59 | disposition home or self-care (01) ==
LOC: RAD 18:26
PROVIDERS: PCP Internal Medicine Adolescent Medicine; Visit Provider Physician Assistant Surgical
DX: M17.12 Unilateral primary osteoarthritis, left knee (principal); M25.762 Osteophyte, left knee
CPT/HCPCS: 73562